=== PATIENT | female | born 1945 | race Native Hawaiian/Other Pacific Islander ===

== ENCOUNTER 2016-12-08 11:05 | Inpatient (IN) | payer MEDICARE, OTHER ==
[2016-12-08 11:11] VITALS: BMI 25.7
[2016-12-08] MEDS ORDERED: Sodium Chloride 0.9% 1,000 ML IV STA (11:34)
--- NOTE | 2016-12-08 11:35 | ED PDOC ---
Arrival/HPI <Efra Franco - Last Filed: 12/08/16 15:25> - General Historian: Patient <Mariela Hall - Last Filed: 12/08/16 15:31> - General Chief Complaint: Abdominal Pain Time Seen by Provider: 12/08/16 11:15 - History of Present Illness Narrative History of Present Illness (Text): 12/08/16 11:35 This patient is a 71yo F w/ a PMhx of hypothyroidism, HTN who is coming to the hospital after a 2d history of lower abdominal pain. states the pain started in her umbilicus and has radiated now down to the lower abdomen. Patient states she has not passed any gas or had any bowel movement since the pain started, or been able to tolerate any PO for 2 days. States she only took her hypothyroid medicine today, skipped her BP meds. PSHx of total hysterectomy in [facility] with open abdominal surgery. Never had obstruction or symptoms like this before. Patient admits to fever/chills, sweats, vomiting all meals. Denies CP, SOB, diarrhea, dysuria/freq/urg, or lower extremity pain swelling. PMD: Dr. Marleni Patel [phone] [address] [place], [address] 12/08/16 11:47 (Efra Franco) Past Medical History - Provider Review Nursing Documentation Reviewed: Yes - Travel History Have you recently traveled outside [place] w/in the past 3 mons?: No - Infectious Disease Hx of Infectious Diseases: None - Reproductive Menopause: Yes - Cardiac Hx Cardiac Disorders: No Hx Hypertension: Yes - Pulmonary Hx Respiratory Disorders: No - Endocrine/Metabolic Hx Hyperthyroidism: Yes - Psychiatric Hx Substance Use: No - Surgical History Hx Hysterectomy: Yes (20 years ago) - Anesthesia Hx Anesthesia Reactions: No Hx Malignant Hyperthermia: No <Efra Franco - Last Filed: 12/08/16 15:25> - Provider Review Nursing Documentation Reviewed: Yes <Mariela Hall - Last Filed: 12/08/16 15:31> - Patient History Narrative Patient History: hypothyroidism, HTN, total abdominal hysterectomy in [place], lower leg vein stripping w/ laser (Efra Franco) Family/Social History - Physician Review Nursing Documentation Reviewed: Yes Family/Social History: Hypertension Smoking Status: Never Smoked Hx Alcohol Use: No Hx Substance Use: No <AllyjeromyEfra skaggs - Last Filed: 12/08/16 15:25> - Physician Review Nursing Documentation Reviewed: Yes <Mariela Hall - Last Filed: 12/08/16 15:31> Allergies/Home Meds <Efra Franco - Last Filed: 12/08/16 15:25> <Mariela Hall - Last Filed: 12/08/16 15:31> Allergies/Adverse Reactions: Allergies No Known Allergies Allergy (Unverified 12/08/16 11:11) Home Medications: Home Meds Medication Instructions Recorded Confirmed Levothyroxine [Synthroid] 100 mcg PO DAILY 12/08/16 12/08/16 Olmesartan/Hydrochlorothiazide 1 tab PO DAILY 12/08/16 12/08/16 [Olmesartan-Hctz 40-12.5 mg Tab] Review of Systems - Review of Systems Constitutional: Fevers. absent: Fatigue, Weight Change Eyes: absent: Vision Changes, Photophobia ENT: absent: Hearing Changes, Tinnitus Respiratory: absent: SOB, Cough, Sputum, Wheezing Cardiovascular: absent: Chest Pain, Palpitations, Edema, Calf Pain, Orthopnea Gastrointestinal: Abdominal Pain, Stool Changes (has not had a BM in 2 days), Nausea, Vomiting, Appetite Changes. absent: Constipation, Diarrhea, Hematochezia, Hematemesis, Anorexia, Food Intolerance Genitourinary Female: absent: Dysuria, Frequency, Hematuria, Urine Output Changes Musculoskeletal: absent: Arthralgias Skin: absent: Rash, Pruritis Neurological: absent: Headache, Dizziness Endocrine: absent: Diaphoresis Hemo/Lymphatic: absent: Adenopathy Psychiatric: absent: Anxiety, Depression <AllyjeromyEfra skaggs - Last Filed: 12/08/16 15:25> Physical Exam Temperature: Febrile (101 rectal) Blood Pressure: Normal Pulse: Tachycardic Respiratory Rate: Normal Appearance: Positive for: Well-Appearing, Non-Toxic Mental Status: Positive for: Alert and Oriented X 3 - Systems Exam Head: Present: Atraumatic Pupils: Present: PERRL Extroacular Muscles: Present: EOMI Conjunctiva: Present: Normal Mouth: Present: Moist Mucous Membranes Neck: Present: Normal Range of Motion. No: Meningeal Signs, MIDLINE TENDERNESS Respiratory/Chest: Present: Clear to Auscultation, Good Air Exchange. No: Respiratory Distress Cardiovascular: Present: Murmurs, Normal S1, S2, Tachycardic Abdomen: Present: Tenderness (lower abdominal diffuse tenderness ), Distention ( tympanic ), Normal Bowel Sounds, Guarding (lower abdominal gaurding ). No: Peritoneal Signs, Rebound Back: No: CVA Tenderness Lower Extremity: No: CALF TENDERNESS Neurological: Present: GCS=15, CN II-XII Intact, Speech Normal, Gait Normal Skin: Present: Warm Psychiatric: Present: Alert, Oriented x 3 <Efra Franco - Last Filed: 12/08/16 15:25> Medical Decision Making - Lab Interpretations I have reviewed the lab results: Yes <Efra Franco - Last Filed: 12/08/16 15:25> - Lab Interpretations I have reviewed the lab results: Yes - RAD Interpretation Station Helper: ED Physician <Mariela Hall - Last Filed: 12/08/16 15:31> ED Course and Treatment: 12/08/16 11:42 Patient is SIRS 1/4, tachycardic, borderline resp rate); 1L NS bolus, blood cultures, shock panel. Blood pressure is stable f/u labs CT Abdomen Pelvis PO and IV Contrast Pain Control Will continue to follow 12/08/16 12:18 Chest X-Ray is clear; no pneumothorax or obvious sign of PNA Patient is still pending CT Abdomen Pelvis w/ PO/IV Contrast Comfortably sitting in bed; no wretching/vomiting noted 12/08/16 12:18 12/08/16 12:27 CBC shows no elevated WBC however left shift; pending CMP and cardiac ISO 12/08/16 12:56 CMP WNL except for mildly elevated bilirubin 1.6; Troponin WNL; Lactate WNL; will f/u w/ abdominal CT scan 12/08/16 13:04 Repleted K 40mEq IV 12/08/16 15:25 CT scan showed distal small bowel obstruction with transition point; contrast not passing through surgery consult placed surgery residents here evaluating patients currently patient will be admitted to the hospital for the treatment of SBO patient is hemodynamically stable case discussed in detail with Dr. Hall (Efra Franco) 12/08/16 Patient Seen With Resident: In agreement with resident note which contains more details about the patient. Patient was seen and evaluated with resident. Came up with plan and treatment together. 12/08/16 15:30 Results of workup showing SBO - will need tba - discussed with surgical team. Discussed with Dr. Morrell for admission on her service. (Mariela Hall) - Lab Interpretations Lab Results: 12/08/16 11:30 12/08/16 11:30 Lab Results 12/08/16 13:40: Urine Color Yellow, Urine Appearance Sl cloudy, Urine pH 6.0, Ur Specific Sargent 1.020, Urine Protein 30 H, Urine Glucose (UA) Negative, Urine Ketones Negative, Urine Blood Large H, Urine Nitrate Negative, Urine Bilirubin Negative, Urine Urobilinogen 0.2, Ur Leukocyte Esterase Trace H, Urine RBC Tntc, Urine WBC 0 - 2, Ur Epithelial Cells 3 - 4, Urine Bacteria Few 12/08/16 11:30: TSH 3rd Generation 4.13 12/08/16 11:30: Sodium 138, Chloride 100, Potassium 3.2 L, Carbon Dioxide 24, Anion Gap 17, BUN 33 H, Creatinine 1.0, Est GFR ( Amer) > 60, Est GFR ( Non-Af Amer) 55, Random Glucose 122 H, Calcium 9.7, Total Bilirubin 1.6 H, AST 21, ALT 17, Alkaline Phosphatase 113, Lactate Dehydrogenase 462, Total Creatine Kinase 57, Troponin I < 0.01, Total Protein 8.1, Albumin 4.0, Globulin 4.1, Albumin/Globulin Ratio 1.0 L, Lipase < 10 L 12/08/16 11:30: pO2 141 H, VBG pH 7.50 H, VBG pCO2 33.0 L, VBG HCO3 25.7, VBG Total CO2 26.7, VBG O2 Sat (Calc) 98.6 H, VBG Base Excess 2.9 H, VBG Potassium 3.3 L, Sodium 137.0, Chloride 104.0, Glucose 125 H, Lactate 1.4, FiO2 21.0, Venous Blood Potassium 3.3 L 12/08/16 11:30: WBC 8.7, RBC 4.07, Hgb 12.4, Hct 35.9 L, MCV 88.2, MCH 30.5, MCHC 34.5, RDW 13.4, Plt Count 185, MPV 10.4, Gran % 86.6 H, Lymph % (Auto) 9.9 L, Swain % (Auto) 3.3, Eos % (Auto) 0.1 L, Baso % (Auto) 0.1, Gran # 7.54 H, Lymph # 0.9 L, Swain # 0.3, Eos # 0.0, Baso # 0.01 - RAD Interpretation Radiology Orders: 12/08/16 11:33 CHEST PORTABLE [RAD] Stat 12/08/16 11:38 ABDOMEN & PELVIS [ABD PELVIS PO & IV CONTRAST] [CT] Stat - Medication Orders Current Medication Orders: Potassium Chloride (Potassium Chloride 20 Meq/100 Ml) 20 meq in 100 mls @ 50 mls/hr IVPB Q2H NELL Stop: 12/08/16 16:44 Last Admin: 12/08/16 13:57 Dose: 50 mls/hr Discontinued Medications Famotidine (Pepcid) 20 mg IVP STAT STA Stop: 12/08/16 11:35 Last Admin: 12/08/16 11:57 Dose: 20 mg Sodium Chloride (Sodium Chloride 0.9%) 1,000 mls @ 999 mls/hr IV .Q1H1M STA Stop: 12/08/16 12:34 Last Admin: 12/08/16 11:58 Dose: 999 mls/hr Iohexol (Omnipaque 240 (50 Ml)) Confirm Administered Dose 50 ml .ROUTE .STK-MED ONE Stop: 12/08/16 11:41 Iohexol (Omnipaque 350 100 Ml) Confirm Administered Dose 350 mg .ROUTE .STK-MED ONE Stop: 12/08/16 13:19 Morphine Sulfate (Morphine) 2 mg IVP STAT STA Stop: 12/08/16 11:41 Last Admin: 12/08/16 11:57 Dose: 2 mg Ondansetron HCl (Zofran Inj) 4 mg IVP STAT STA Stop: 12/08/16 11:35 Last Admin: 12/08/16 11:57 Dose: 4 mg <Efra Franco - Last Filed: 12/08/16 15:25> - PA / [employer]ERRICK[employer] R[employer]GER / Resident Statement / has reviewed & agrees with the documentation as recorded. / has examined the patient and agrees with the treatment plan. - Scribe Statement The provider has reviewed the documentation as recorded by the Scribe <Mariela Hall - Last Filed: 12/08/16 15:31> - Scribe Statement 12/08/2016 Rebeca Houston Provider Scribe Attestation: All medical record entries made by the Scribe were at my direction and personally dictated by me. I have reviewed the chart and agree that the record accurately reflects my personal performance of the history, physical exam, medical decision making, and the department course for this patient. I have also personally directed, reviewed, and agree with the discharge instructions and disposition. (Mariela Hall) Disposition/Present on Arrival - Present on Arrival Any Indicators Present on Arrival: Yes History of DVT/PE: No History of Uncontrolled Diabetes: No Urinary Catheter: No History of Decub. Ulcer: No History Surgical Site Infection Following: None - Disposition Have Diagnosis and Disposition been Completed?: Yes Disposition Time: 15:26 Patient Plan: Admission <Efra Franco - Last Filed: 12/08/16 15:25> <Mariela Hall - Last Filed: 12/08/16 15:31> - Disposition Diagnosis: Small bowel obstruction due to adhesions Disposition: HOSPITALIZED Patient Problems: Current Active Problems Problem Status Onset Small bowel obstruction due to adhesions Acute Condition: FAIR Referrals: PCP,NO [Primary Care Provider] - Follow up with primary
[2016-12-08] MEDS ORDERED: Iohexol 240 (50 ml) ONE (11:40)
[2016-12-08] MEDS ORDERED: Morphine 2 mg/ml ISec IVP STA (11:40)
[2016-12-08 12:06] LABS: VENOUS BLOOD GAS BASE EXCESS 2.9 mmol/L (0.0-2.0); VENOUS BLOOD GAS PO2 141 mm/Hg (30-55)
[2016-12-08 12:13] LABS: BASO # 0.01 K/mm3 (0.0-2.0); BASO % 0.1 % (0.0-3.0); EOS % 0.1 % (1.5-5.0); GRAN # 7.54 (1.4-6.5); GRAN % 86.6 % (50.0-68.0); HEMOGLOBIN 12.4 gm/dL (12.0-16.0); LYMPH # 0.9 (1.2-3.4); LYMPH % 9.9 % (22.0-35.0); MEAN CELL VOLUME 88.2 fL (80.0-105.0); MEAN CORPUSCULAR HEMOGLOBIN 30.5 pg (25.0-35.0); MEAN CORPUSCULAR HGB CONC 34.5 g/dl (31.0-37.0); MEAN PLATELET VOLUME 10.4 fl (7.0-11.0); MONO # 0.3 (0.1-0.6); MONO % 3.3 % (1.0-6.0); PLATELET COUNT 185 10^3/uL (120.0-450.0); RBC 4.07 10^6/uL (3.5-6.1); RED CELL DISTRIBUTION WIDTH 13.4 % (11.5-14.5); WHITE BLOOD COUNT 8.7 10^3/ul (4.5-11.0)
[2016-12-08 12:18] LABS: ALT/SGPT 17 U/L (7-56); AST/SGOT 21 U/L (15-39); BLOOD UREA NITROGEN 33 mg/dL (7-21); CALCIUM 9.7 mg/dL (8.4-10.5); GFR AFRICAN-AMERICAN > 60; GFR NON-AFRICAN AMERICAN 55
[2016-12-08 12:29] LABS: LIPASE < 10 U/L (23-300); TROPONIN I < 0.01 ng/mL
[2016-12-08] MEDS ORDERED: Iohexol 350 MG/100 ML VIAL ONE (13:18)
[2016-12-08 13:48] LABS: URINE BILIRUBIN NEGATIVE (NEGATIVE); URINE BLOOD LARGE (NEGATIVE); URINE GLUCOSE (UA) NEGATIVE (NEGATIVE); URINE LEUKOCYTE ESTERASE TRACE Leu/uL (NEGATIVE); URINE NITRATE NEGATIVE (NEGATIVE); URINE PROTEIN 30 mg/dL (<30 mg/dL); URINE UROBILINOGEN 0.2 E.U./dL (<1 E.U./dL)
[2016-12-08 13:50] LABS: URINE APPEARANCE SL CLOUDY (CLEAR); URINE COLOR YELLOW (YELLOW)
[2016-12-08 13:53] LABS: URINE RBC TNTC /hpf (0-2); URINE WBC 0 - 2 /hpf (0-6)
[2016-12-08 13:54] LABS: URINE BACTERIA FEW (NEG)
--- NOTE | 2016-12-08 15:51 | CP.PCM.CON ---
<Henry Keenan - Last Filed: 12/09/16 08:27> History of Present Illness - History of Present Illness History of Present Illness: General Surgery Dr. Sargent 71 year old F presented to the ER after a 3 day hx of abdominal pain. She states that the pain is primarily in the lower portion of her abdomen, poorly localized, dull in nature and does not radiate anywhere. Patient complains of abdomen distention. She has been nauseous the past few days and vomited this morning. The vomit was liquidly and patient denies seeing any blood in it. She has not had a BM since Wednesday night. Denies fever/chills, numbness/tingling, SOB, CP PMHx: HTN, Hyperthyroid PSHx: Hysterectomy 20 years ago in [facility] Social: Non smoker, non drinker, denies drug use Allergies: NKDA Review of Systems - Review of Systems All systems: reviewed and no additional remarkable complaints except Past Patient History - Infectious Disease Hx of Infectious Diseases: None - Past Social History Smoking Status: Never Smoked - CARDIAC Hx Cardiac Disorders: No Hx Hypertension: Yes - PULMONARY Hx Respiratory Disorders: No - ENDOCRINE/METABOLIC Hx Hyperthyroidism: Yes - PSYCHIATRIC Hx Substance Use: No - SURGICAL HISTORY Hx Hysterectomy: Yes (20 years ago) - ANESTHESIA Hx Anesthesia Reactions: No Hx Malignant Hyperthermia: No Meds Allergies/Adverse Reactions: Allergies Allergy/AdvReac Type Severity Reaction Status Date / Time No Known Allergies Allergy Verified 12/08/16 18:13 - Medications Medications: Current Medications Potassium Chloride (Potassium Chloride 20 Meq/100 Ml) 20 meq in 100 mls @ 50 mls/hr IVPB Q2H NELL Stop: 12/08/16 16:44 Last Admin: 12/08/16 13:57 Dose: 50 mls/hr Physical Exam - Head Exam Head Exam: ATRAUMATIC, NORMOCEPHALIC - Eye Exam Eye Exam: EOMI - Respiratory Exam Respiratory Exam: NORMAL BREATHING PATTERN. absent: Accessory Muscle Use, Respiratory Distress - Cardiovascular Exam Cardiovascular Exam: REGULAR RHYTHM - GI/Abdominal Exam GI & Abdominal Exam: Distended, Soft, Tenderness. absent: Firm - Neurological Exam Neurological exam: Alert, Oriented x3 - Psychiatric Exam Psychiatric exam: Normal Affect, Normal Mood - Skin Skin Exam: Dry, Normal Color, Warm Results - Vital Signs Recent Vital Signs: Last Vital Signs Temp 100.1 F H 07/18/17 11:32 Pulse 69 12/08/16 14:07 Resp 18 12/08/16 14:07 BP 150/79 12/08/16 14:07 Pulse Ox 100 12/08/16 14:07 - Labs Result Diagrams: 12/09/16 05:00 12/09/16 05:00 Labs: Laboratory Results - last 24 hr 12/08/16 12/08/16 12/08/16 11:30 11:30 11:30 WBC 8.7 RBC 4.07 Hgb 12.4 Hct 35.9 L MCV 88.2 MCH 30.5 MCHC 34.5 RDW 13.4 Plt Count 185 MPV 10.4 Gran % 86.6 H Lymph % (Auto) 9.9 L Mcculloch % (Auto) 3.3 Eos % (Auto) 0.1 L Baso % (Auto) 0.1 Gran # 7.54 H Lymph # 0.9 L Mcculloch # 0.3 Eos # 0.0 Baso # 0.01 pO2 141 H VBG pH 7.50 H VBG pCO2 33.0 L VBG HCO3 25.7 VBG Total CO2 26.7 VBG O2 Sat (Calc) 98.6 H VBG Base Excess 2.9 H VBG Potassium 3.3 L Sodium 137.0 138 Chloride 104.0 100 Glucose 125 H Lactate 1.4 FiO2 21.0 Potassium 3.2 L Carbon Dioxide 24 Anion Gap 17 BUN 33 H Creatinine 1.0 Est GFR ( Amer) > 60 Est GFR (Non-Af Amer) 55 Random Glucose 122 H Calcium 9.7 Total Bilirubin 1.6 H AST 21 ALT 17 Alkaline Phosphatase 113 Lactate Dehydrogenase 462 Total Creatine Kinase 57 Troponin I < 0.01 Total Protein 8.1 Albumin 4.0 Globulin 4.1 Albumin/Globulin Ratio 1.0 L Lipase < 10 L TSH 3rd Generation Venous Blood Potassium 3.3 L Urine Color Urine Appearance Urine pH Ur Specific [place] Urine Protein Urine Glucose (UA) Urine Ketones Urine Blood Urine Nitrate Urine Bilirubin Urine Urobilinogen Ur Leukocyte Esterase Urine RBC Urine WBC Ur Epithelial Cells Urine Bacteria 12/08/16 12/08/16 11:30 13:40 WBC RBC Hgb Hct MCV MCH MCHC RDW Plt Count MPV Gran % Lymph % (Auto) Mcculloch % (Auto) Eos % (Auto) Baso % (Auto) Gran # Lymph # Mcculloch # Eos # Baso # pO2 VBG pH VBG pCO2 VBG HCO3 VBG Total CO2 VBG O2 Sat (Calc) VBG Base Excess VBG Potassium Sodium Chloride Glucose Lactate FiO2 Potassium Carbon Dioxide Anion Gap BUN Creatinine Est GFR ( Amer) Est GFR (Non-Af Amer) Random Glucose Calcium Total Bilirubin AST ALT Alkaline Phosphatase Lactate Dehydrogenase Total Creatine Kinase Troponin I Total Protein Albumin Globulin Albumin/Globulin Ratio Lipase TSH 3rd Generation 4.13 Venous Blood Potassium Urine Color Yellow Urine Appearance Sl cloudy Urine pH 6.0 Ur Specific [place] 1.020 Urine Protein 30 H Urine Glucose (UA) Negative Urine Ketones Negative Urine Blood Large H Urine Nitrate Negative Urine Bilirubin Negative Urine Urobilinogen 0.2 Ur Leukocyte Esterase Trace H Urine RBC Tntc Urine WBC 0 - 2 Ur Epithelial Cells 3 - 4 Urine Bacteria Few Assessment & Plan - Assessment and Plan (Free Text) Assessment: 71 year old F with SBO Plan: CT on 12/08 shows transition point in the distal portion of the small bowel. NG Tube placement NPO Pain management Will discuss with Dr. Sargent - Date & Time Date: 12/08/16 Time: 15:57 <Jerry Sargent - Last Filed: 12/13/16 18:07> Meds - Medications Medications: Current Medications Acetaminophen (Tylenol 650 Mg Supp) 650 mg RC Q6H PRN PRN Reason: Fever >100.4 F Enoxaparin Sodium (Lovenox) 40 mg SC DAILY [facility] PRN Reason: Protocol Last Admin: 12/13/16 09:14 Dose: 40 mg Home Med (Home Med) 1 unit PO DAILY [facility] Hydromorphone HCl (Dilaudid) 0.5 mg IVP Q3 PRN PRN Reason: Pain, moderate (4-7) Last Admin: 12/13/16 09:12 Dose: 0.5 mg Metronidazole (Flagyl) 500 mg in 100 mls @ 100 mls/hr IVPB Q8 NELL PRN Reason: Protocol Last Admin: 12/13/16 13:59 Dose: 100 mls/hr Ceftriaxone Sodium (Rocephin 1 Gram Ivpb) 1 gm in 100 mls @ 100 mls/hr IVPB DAILY [facility] PRN Reason: Protocol Last Admin: 12/13/16 09:14 Dose: 100 mls/hr Dextrose/Sodium Chloride (Dextrose 5%/0.45% Ns 1000 Ml) 1,000 mls @ 100 mls/hr IV .Q10H NELL Last Admin: 12/13/16 11:28 Dose: 100 mls/hr Potassium Chloride 40 meq/ (Dextrose/Sodium Chloride) 1,020 mls @ 100 mls/hr IV .[id number] NELL Stop: 12/14/16 08:08 Last Admin: 12/13/16 11:45 Dose: 100 mls/hr Results - Vital Signs Recent Vital Signs: Last Vital Signs Temp 98 F 12/13/16 16:00 Pulse 77 12/13/16 16:00 Resp 18 12/13/16 16:00 BP 158/84 H 12/13/16 16:00 Pulse Ox 100 12/13/16 16:00 - Labs Result Diagrams: 12/13/16 06:00 12/13/16 06:00 Labs: Laboratory Results - last 24 hr 12/13/16 12/13/16 06:00 06:00 WBC 6.6 RBC 3.34 L Hgb 9.6 L Hct 29.6 L MCV 88.6 MCH 28.7 MCHC 32.4 RDW 13.3 Plt Count 240 MPV 9.2 Gran % 64.6 Lymph % (Auto) 18.3 L Mcculloch % (Auto) 13.0 H Eos % (Auto) 3.8 Baso % (Auto) 0.3 Gran # 4.29 Lymph # 1.2 Mcculloch # 0.9 H Eos # 0.3 Baso # 0.02 Sodium 133 Potassium 3.3 L Chloride 99 Carbon Dioxide 29 Anion Gap 8 L BUN 9 Creatinine 0.5 Est GFR ( Amer) > 60 Est GFR (Non-Af Amer) > 60 Random Glucose 117 H Calcium 7.9 L Total Bilirubin 0.4 AST 14 L ALT 23 Alkaline Phosphatase 53 Total Protein 5.5 L Albumin 2.5 L Globulin 3.0 Albumin/Globulin Ratio 0.8 L Assessment & Plan - Assessment and Plan (Free Text) Plan: Patient was seen and examined by me. I agree with assessment and plan as per resident's note.
[2016-12-08] MEDS ORDERED: OLMESARTAN HCTZ PO SCH (18:10)
[2016-12-08] MEDS ORDERED: Morphine 2 mg/ml ISec IVP PRN (18:51)
[2016-12-08] MEDS ORDERED: Pneumococcal 23-Valent Vaccine IM ONE (19:27)
[2016-12-08] MEDS ORDERED: BENICAR HCT PO ONE (20:30)
[2016-12-09] MEDS: Dextrose 5%/0.45% NS 1,000 ML IV SCH ×2 (00:44→21:43)
[2016-12-09] MEDS ORDERED: Ciprofloxacin 400mg/200ml D5W 400 MG/200 ML BAG IVPB SCH (01:00)
[2016-12-09 06:47] LABS: BASO # 0.01 K/mm3 (0.0-2.0); BASO % 0.1 % (0.0-3.0); EOS # 0.1 (0.0-0.7); EOS % 1.6 % (1.5-5.0); GRAN % 79.8 % (50.0-68.0); HEMOGLOBIN 11.3 gm/dL (12.0-16.0); LYMPH # 0.8 (1.2-3.4); LYMPH % 11.7 % (22.0-35.0); MEAN CELL VOLUME 89.8 fL (80.0-105.0); MEAN CORPUSCULAR HEMOGLOBIN 29.5 pg (25.0-35.0); MEAN CORPUSCULAR HGB CONC 32.8 g/dl (31.0-37.0); MEAN PLATELET VOLUME 10.3 fl (7.0-11.0); MONO # 0.5 (0.1-0.6); MONO % 6.8 % (1.0-6.0); PLATELET COUNT 185 10^3/uL (120.0-450.0); RBC 3.83 10^6/uL (3.5-6.1); RED CELL DISTRIBUTION WIDTH 13.5 % (11.5-14.5); WHITE BLOOD COUNT 6.9 10^3/ul (4.5-11.0)
[2016-12-09 06:54] LABS: ALB/GLOB RATIO 0.9 (1.1-1.8); ALBUMIN 3.4 g/dL (3.0-4.8); ALT/SGPT 23 U/L (7-56); AST/SGOT 18 U/L (15-39); BLOOD UREA NITROGEN 18 mg/dL (7-21); CALCIUM 8.8 mg/dL (8.4-10.5); GFR AFRICAN-AMERICAN > 60; GFR NON-AFRICAN AMERICAN > 60
--- NOTE | 2016-12-09 08:34 | CP.PCM.PN ---
<Henry Keenan - Last Filed: 12/09/16 08:28> Subjective - Date & Time of Evaluation Date of Evaluation: 12/09/16 Time of Evaluation: 08:28 - Subjective Subjective: General Surgery Dr. Sargent Patient seen and examined this morning at bed side. No acute events over night. Patient states that she is still experiencing diffuse abdominal pain and nausea with NG tube in place. She has not had a BM or passed any flatus. Denies fever/ chills, SOB or CP. Objective - Vital Signs/Intake and Output Vital Signs (last 24 hours): Temp Pulse Resp BP Pulse Ox 98.4 F 79 20 151/80 H 99 12/08/16 19:01 12/08/16 19:01 12/08/16 19:01 12/08/16 19:01 12/08/16 16:00 Intake and Output: 12/09/16 12/09/16 06:59 18:59 Intake Total 0 Balance 0 - Medications Medications: Current Medications Clonidine HCl (Catapres Tts1 0.1 Mg/24 Hr) 1 patch TD Q7D@1000 [facility] Home Med (Home Med) 1 unit PO DAILY [facility] Dextrose/Sodium Chloride (Dextrose 5%/0.45% Ns 1000 Ml) 1,000 mls @ 60 mls/hr IV .[id number] [facility] Last Admin: 12/09/16 00:44 Dose: Not Given Morphine Sulfate (Morphine) 2 mg IVP Q4H PRN PRN Reason: Pain, moderate (4-7) - Labs Labs: 12/09/16 05:00 12/09/16 05:00 - Constitutional Appears: No Acute Distress - Head Exam Head Exam: ATRAUMATIC, NORMOCEPHALIC - Eye Exam Eye Exam: EOMI - ENT Exam ENT Exam: Mucous Membranes Moist - Respiratory Exam Respiratory Exam: NORMAL BREATHING PATTERN. absent: Accessory Muscle Use, Respiratory Distress - Cardiovascular Exam Cardiovascular Exam: REGULAR RHYTHM - GI/Abdominal Exam GI & Abdominal Exam: Distended, Guarding, Soft, Tenderness. absent: Rigid Additional comments: NG tube - 640cc since insertion - Neurological Exam Neurological Exam: Alert, Awake, Oriented x3 - Psychiatric Exam Psychiatric exam: Normal Affect, Normal Mood - Skin Skin Exam: Dry, Normal Color, Warm Assessment and Plan - Assessment and Plan (Free Text) Assessment: 71 year old F with SBO. Plan: Keep NG Tube in place, intermittent, low suction NPO Pain management Will discuss with attending Henry Keenan PGY1 <Jerry Sargent - Last Filed: 12/13/16 18:09> Objective - Vital Signs/Intake and Output Vital Signs (last 24 hours): Temp Pulse Resp BP Pulse Ox 98 F 77 18 158/84 H 100 12/13/16 16:00 12/13/16 16:00 12/13/16 16:00 12/13/16 16:00 12/13/16 16:00 Intake and Output: 12/13/16 12/13/16 06:59 18:59 Intake Total 1600 Output Total 715 1814 Balance 885 -1814 - Medications Medications: Current Medications Acetaminophen (Tylenol 650 Mg Supp) 650 mg RC Q6H PRN PRN Reason: Fever >100.4 F Enoxaparin Sodium (Lovenox) 40 mg SC DAILY [facility] PRN Reason: Protocol Last Admin: 12/13/16 09:14 Dose: 40 mg Home Med (Home Med) 1 unit PO DAILY [facility] Hydromorphone HCl (Dilaudid) 0.5 mg IVP Q3 PRN PRN Reason: Pain, moderate (4-7) Last Admin: 12/13/16 09:12 Dose: 0.5 mg Metronidazole (Flagyl) 500 mg in 100 mls @ 100 mls/hr IVPB Q8 NELL PRN Reason: Protocol Last Admin: 12/13/16 13:59 Dose: 100 mls/hr Ceftriaxone Sodium (Rocephin 1 Gram Ivpb) 1 gm in 100 mls @ 100 mls/hr IVPB DAILY [facility] PRN Reason: Protocol Last Admin: 12/13/16 09:14 Dose: 100 mls/hr Dextrose/Sodium Chloride (Dextrose 5%/0.45% Ns 1000 Ml) 1,000 mls @ 100 mls/hr IV .Q10H NELL Last Admin: 12/13/16 11:28 Dose: 100 mls/hr Potassium Chloride 40 meq/ (Dextrose/Sodium Chloride) 1,020 mls @ 100 mls/hr IV .[id number] NELL Stop: 12/14/16 08:08 Last Admin: 12/13/16 11:45 Dose: 100 mls/hr - Labs Labs: 12/13/16 06:00 12/13/16 06:00 PT 10.7 Seconds (9.9-11.8) 12/11/16 06:00 INR 0.99 (0.93-1.08) 12/11/16 06:00 APTT 33.0 Seconds (23.7-30.8) H 12/11/16 06:00 Assessment and Plan - Assessment and Plan (Free Text) Plan: Patient was seen and examined by me. I agree with assessment and plan as per resident's note.
--- NOTE | 2016-12-09 09:34 | RAD ---
PROCEDURE: Abdomen single view HISTORY: Eval Contrast Progression in SBO COMPARISON: TECHNIQUE: Single view FINDINGS: Moderately dilated loops of small bowel are seen. Oral contrast is seen in the stomach and small bowel IMPRESSION: Moderately dilated loops of small bowel
--- NOTE | 2016-12-09 09:43 | RAD ---
HISTORY: Abdominal Pain COMPARISON: 12/08/2016 FINDINGS: BOWEL: There is persistent dilatation of small bowel consistent with partial obstruction. Contrast has reached the colon BONES: Normal. OTHER FINDINGS: None. IMPRESSION: Persistent dilatation of small bowel consistent with partial small bowel obstruction
[2016-12-09] MEDS ORDERED: BENICAR HCT PO SCH (10:00)
--- NOTE | 2016-12-09 14:00 | RAD ---
HISTORY: SBO COMPARISON: No prior. FINDINGS: BOWEL: There is slight improvement in the pattern of small bowel obstruction. The nasogastric tube is seen in the stomach in satisfactory position BONES: Normal. OTHER FINDINGS: None. IMPRESSION: There is slight improvement in the pattern of small bowel obstruction. The nasogastric tube is seen in the stomach in satisfactory position
--- NOTE | 2016-12-09 20:45 | CP.PCM.HP ---
History of Present Illness - History of Present Illness History of Present Illness: A 71 yr old female with hx of HTN , hf fibroid sx 20 yrs ago came with c\o nausea and vomiting for 3 days with abdominal pain all over ,progressively getting worsening ,came to er, no BM from last wednesday CT abdomen showed SBO.ON NG tube, repeat xrays- minimal improvement pain is better, nausea is better. denies similar complaints never had colonoscopy. did not pass gas after admission Present on Admission - Present on Admission Any Indicators Present on Admission: No Review of Systems - Constitutional Constitutional: absent: Chills, Fatigue, Fever, Headache, Night Sweats - EENT Nose/Mouth/Throat: absent: Nasal Congestion, Dysphagia, Odynophagia, Sore Throat , Neck Pain - Cardiovascular Cardiovascular: absent: Chest Pain, Chest Pain with Activity, Diaphoresis, Leg Edema, Palpitations, Rapid Heart Rate - Respiratory Respiratory: absent: Cough, Dyspnea on Exertion, Excessive Mucous Production - Gastrointestinal Gastrointestinal: Abdominal Pain, Constipation, Nausea. absent: Coffee Ground Emesis, Dyspepsia - Genitourinary Genitourinary: absent: Freq UTI - Musculoskeletal Musculoskeletal: Arthralgias - Neurological Neurological: absent: Abnormal Gait, Dizziness - Psychiatric Psychiatric: absent: Depression, Mood Swings - Hematologic/Lymphatic Hematologic: absent: Lymphadenopathy Past Patient History - Infectious Disease Hx of Infectious Diseases: None - Past Social History Smoking Status: Never Smoked - CARDIAC Hx Cardiac Disorders: No Hx Hypertension: Yes - PULMONARY Hx Respiratory Disorders: No - NEUROLOGICAL Hx Neurological Disorder: No - HEENT Hx HEENT Problems: No - RENAL Hx Chronic Kidney Disease: No - ENDOCRINE/METABOLIC Hx Hyperthyroidism: Yes - HEMATOLOGICAL/ONCOLOGICAL Hx Blood Disorders: No - INTEGUMENTARY Hx Dermatological Problems: Yes Other/Comment: POST LASER SURGERY TO BILATERAL LE AND FOOT.BILATERAL LOWER EXTREMITY IS BLACKENED.SAME WITH FOOT. - MUSCULOSKELETAL/RHEUMATOLOGICAL Hx Musculoskeletal Disorders: No Hx Falls: No - GASTROINTESTINAL Hx Gastrointestinal Disorders: Yes Other/Comment: SBO SECONDARY TO ADHESIONS 12-08-16 - GENITOURINARY/GYNECOLOGICAL Hx Genitourinary Disorders: No - PSYCHIATRIC Hx Substance Use: No - SURGICAL HISTORY Hx Hysterectomy: Yes (20 years ago) - ANESTHESIA Hx Anesthesia Reactions: No Hx Malignant Hyperthermia: No Meds Allergies/Adverse Reactions: Allergies Allergy/AdvReac Type Severity Reaction Status Date / Time No Known Allergies Allergy Verified 12/08/16 18:13 Physical Exam - Constitutional Appears: In Acute Distress - Head Exam Head Exam: ATRAUMATIC, NORMAL INSPECTION - Eye Exam Eye Exam: EOMI, Normal appearance, PERRL - ENT Exam ENT Exam: Mucous Membranes Dry - Neck Exam Neck exam: Positive for: Normal Inspection. Negative for: Lymphadenopathy - Respiratory Exam Respiratory Exam: Clear to Auscultation Bilateral, NORMAL BREATHING PATTERN. absent: Wheezes - Cardiovascular Exam Cardiovascular Exam: REGULAR RHYTHM, +S1, +S2. absent: Systolic Murmur - GI/Abdominal Exam GI & Abdominal Exam: Hypoactive Bowel Sounds, Soft. absent: Tenderness - Extremities Exam Extremities exam: Positive for: normal inspection, pedal pulses present. Negative for: pedal edema - Back Exam Back exam: absent: paraspinal tenderness - Neurological Exam Neurological exam: Alert, CN II-XII Intact, Oriented x3 - Psychiatric Exam Psychiatric exam: Normal Affect, Normal Mood - Skin Skin Exam: Intact Results - Vital Signs Recent Vital Signs: Last Vital Signs Temp 98.6 F 12/09/16 16:00 Pulse 76 12/09/16 18:33 Resp 20 12/09/16 16:00 BP 160/91 H 12/09/16 18:33 Pulse Ox 96 12/09/16 16:00 - Labs Result Diagrams: 12/09/16 05:00 12/09/16 05:00 Labs: Laboratory Results - last 24 hr 12/08/16 12/09/16 12/09/16 18:40 05:00 05:00 WBC 6.9 D RBC 3.83 Hgb 11.3 L Hct 34.4 L MCV 89.8 MCH 29.5 MCHC 32.8 RDW 13.5 Plt Count 185 MPV 10.3 Gran % 79.8 H Lymph % (Auto) 11.7 L Edmonson % (Auto) 6.8 H Eos % (Auto) 1.6 Baso % (Auto) 0.1 Gran # 5.50 Lymph # 0.8 L Edmonson # 0.5 Eos # 0.1 Baso # 0.01 Sodium 138 Potassium 4.0 Chloride 102 Carbon Dioxide 27 Anion Gap 13 BUN 18 Creatinine 0.7 Est GFR ( Amer) > 60 Est GFR (Non-Af Amer) > 60 Random Glucose 98 Calcium 8.8 Total Bilirubin 1.1 AST 18 ALT 23 Alkaline Phosphatase 92 Total Protein 7.1 Albumin 3.4 Globulin 3.7 Albumin/Globulin Ratio 0.9 L Procalcitonin 8.33 H - EKG Data EKG Interpreted by: Myself EKG shows normal: Sinus rhythm Rate: Normal - Imaging and Cardiology Chest x-ray Status: Report reviewed by me CT scan - abdomen Status: Report reviewed by me Abdominal x-ray Status: Report reviewed by me Assessment & Plan (1) Small bowel obstruction due to adhesions Assessment and Plan: NPO NGT IVF PAIN management sx on board d\w patient Status: Acute (2) Essential (primary) hypertension Status: Chronic Comment: hold po meds. start on ctapress0.1 mg q72. (3) Hypokalemia Status: Resolved Comment: k-replaced. k-normal (4) UTI (urinary tract infection) Status: Acute Comment: on cipro. UA-small LE. URINE C\S Decision To Admit - Pt Status Changed To: Hospital Disposition Of: Inpatient Admission - Admit Certification Admit to Inpatient:: After my assessment, the patient will require hospitalization for at least two midnights. This is because of the severity of symptoms shown, intensity of services needed, and/or the medical risk in this patient being treated as an outpatient. - . Bed Request Type: Med/Surg Admitting Physician: Lupe Morrell
[2016-12-10 07:40] LABS: BASO # 0.03 K/mm3 (0.0-2.0); BASO % 0.3 % (0.0-3.0); EOS # 0.2 (0.0-0.7); EOS % 1.9 % (1.5-5.0); GRAN # 6.99 (1.4-6.5); GRAN % 75.1 % (50.0-68.0); HEMOGLOBIN 11.5 gm/dL (12.0-16.0); LYMPH # 1.1 (1.2-3.4); MEAN CELL VOLUME 91.9 fL (80.0-105.0); MEAN CORPUSCULAR HEMOGLOBIN 30.2 pg (25.0-35.0); MEAN CORPUSCULAR HGB CONC 32.9 g/dl (31.0-37.0); MEAN PLATELET VOLUME 10.4 fl (7.0-11.0); MONO % 10.7 % (1.0-6.0); PLATELET COUNT 210 10^3/uL (120.0-450.0); RBC 3.81 10^6/uL (3.5-6.1); RED CELL DISTRIBUTION WIDTH 13.4 % (11.5-14.5); WHITE BLOOD COUNT 9.3 10^3/ul (4.5-11.0)
--- NOTE | 2016-12-10 08:36 | CP.PCM.PN ---
<Henry Keenan - Last Filed: 12/10/16 08:42> Subjective - Date & Time of Evaluation Date of Evaluation: 12/10/16 Time of Evaluation: 08:28 - Subjective Subjective: General Surgery Dr. Sargent Patient seen and examined this morning at bedside. No acute events overnight. Patient complains of pain in the lower portion of her abdomen. She has not passed any flatus, has not passed a BM. Patient is still NPO. Objective - Vital Signs/Intake and Output Vital Signs (last 24 hours): Temp Pulse Resp BP Pulse Ox 98.6 F 76 20 160/91 H 96 12/09/16 16:00 12/09/16 18:33 12/09/16 16:00 12/09/16 18:33 12/09/16 16:00 Intake and Output: 12/10/16 12/10/16 06:59 18:59 Intake Total 1440 Output Total 500 Balance 940 - Medications Medications: Current Medications Enoxaparin Sodium (Lovenox) 40 mg SC DAILY [facility] PRN Reason: Protocol Home Med (Home Med) 1 unit PO DAILY [facility] Dextrose/Sodium Chloride (Dextrose 5%/0.45% Ns 1000 Ml) 1,000 mls @ 60 mls/hr IV .[id number] [facility] Last Admin: 12/09/16 21:43 Dose: 60 mls/hr Morphine Sulfate (Morphine) 2 mg IVP Q4H PRN PRN Reason: Pain, moderate (4-7) Last Admin: 12/09/16 21:46 Dose: 2 mg - Labs Labs: 12/10/16 05:45 12/09/16 05:00 - Constitutional Appears: Non-toxic, No Acute Distress - Head Exam Head Exam: ATRAUMATIC, NORMOCEPHALIC - Eye Exam Eye Exam: EOMI - ENT Exam ENT Exam: Mucous Membranes Moist - Respiratory Exam Respiratory Exam: NORMAL BREATHING PATTERN. absent: Accessory Muscle Use, Respiratory Distress - Cardiovascular Exam Cardiovascular Exam: REGULAR RHYTHM - GI/Abdominal Exam GI & Abdominal Exam: Distended, Guarding, Soft, Tenderness Additional comments: NGT drained 450cc of dark billious material. - Neurological Exam Neurological Exam: Alert, Awake, Oriented x3 - Psychiatric Exam Psychiatric exam: Normal Affect, Normal Mood - Skin Skin Exam: Dry, Normal Color, Warm Assessment and Plan - Assessment and Plan (Free Text) Assessment: 71 year old F with SBO. Plan: Patient put on schedule for OR tomorrow. NPO Keep NGT in place Pain management Will discuss with Dr. Rosetta Figueroa Ree PGY 1 <Jerry Sargent - Last Filed: 12/13/16 18:10> Objective - Vital Signs/Intake and Output Vital Signs (last 24 hours): Temp Pulse Resp BP Pulse Ox 98 F 77 18 158/84 H 100 12/13/16 16:00 12/13/16 16:00 12/13/16 16:00 12/13/16 16:00 12/13/16 16:00 Intake and Output: 12/13/16 12/13/16 06:59 18:59 Intake Total 1600 Output Total 715 1814 Balance 885 -1814 - Medications Medications: Current Medications Acetaminophen (Tylenol 650 Mg Supp) 650 mg RC Q6H PRN PRN Reason: Fever >100.4 F Enoxaparin Sodium (Lovenox) 40 mg SC DAILY [facility] PRN Reason: Protocol Last Admin: 12/13/16 09:14 Dose: 40 mg Home Med (Home Med) 1 unit PO DAILY [facility] Hydromorphone HCl (Dilaudid) 0.5 mg IVP Q3 PRN PRN Reason: Pain, moderate (4-7) Last Admin: 12/13/16 09:12 Dose: 0.5 mg Metronidazole (Flagyl) 500 mg in 100 mls @ 100 mls/hr IVPB Q8 [facility] PRN Reason: Protocol Last Admin: 12/13/16 13:59 Dose: 100 mls/hr Ceftriaxone Sodium (Rocephin 1 Gram Ivpb) 1 gm in 100 mls @ 100 mls/hr IVPB DAILY [facility] PRN Reason: Protocol Last Admin: 12/13/16 09:14 Dose: 100 mls/hr Dextrose/Sodium Chloride (Dextrose 5%/0.45% Ns 1000 Ml) 1,000 mls @ 100 mls/hr IV .Q10H [facility] Last Admin: 12/13/16 11:28 Dose: 100 mls/hr Potassium Chloride 40 meq/ (Dextrose/Sodium Chloride) 1,020 mls @ 100 mls/hr IV .[id number] [facility] Stop: 12/14/16 08:08 Last Admin: 12/13/16 11:45 Dose: 100 mls/hr - Labs Labs: 12/13/16 06:00 12/13/16 06:00 PT 10.7 Seconds (9.9-11.8) 12/11/16 06:00 INR 0.99 (0.93-1.08) 12/11/16 06:00 APTT 33.0 Seconds (23.7-30.8) H 12/11/16 06:00 Assessment and Plan - Assessment and Plan (Free Text) Plan: Patient was seen and examined by me. I agree with assessment and plan as per resident's note. Plan for the operating room tomorrow if patient is not improved by the morning.
[2016-12-10] MEDS: Dextrose 5%/0.45% NS 1,000 ML IV SCH (08:50)
[2016-12-10 09:23] LABS: ALB/GLOB RATIO 0.9 (1.1-1.8); ALBUMIN 3.3 g/dL (3.0-4.8); ALT/SGPT 21 U/L (7-56); AST/SGOT 17 U/L (15-39); BLOOD UREA NITROGEN 13 mg/dL (7-21); CALCIUM 8.8 mg/dL (8.4-10.5); GFR AFRICAN-AMERICAN > 60; GFR NON-AFRICAN AMERICAN > 60
[2016-12-10] MEDS: Enoxaparin 40 mg Syringe SC SCH (09:32)
--- NOTE | 2016-12-10 10:44 | RAD ---
HISTORY: abdominal pain COMPARISON: No prior. FINDINGS: LUNGS: No active pulmonary disease. PLEURA: No significant pleural effusion identified, no pneumothorax apparent. CARDIOVASCULAR: Borderline cardiomegaly versus technical magnification. No pulmonary vascular derangement. OSSEOUS STRUCTURES: No significant abnormalities. VISUALIZED UPPER ABDOMEN: Normal. OTHER FINDINGS: None. IMPRESSION: No active pulmonary disease. Borderline cardiomegaly versus technical magnification.
--- NOTE | 2016-12-10 10:45 | CT ---
PROCEDURE: CT Abdomen and Pelvis with contrast HISTORY: abdominal pain COMPARISON: None. TECHNIQUE: Helical CT of the abdomen pelvis was performed following oral and dynamic intravenous contrast administration. Contrast dose: Omnipaque 350 were-100 cc Radiation dose: Total exam DLP = 723 mGy-cm. This CT exam was performed using one or more of the following dose reduction techniques: Automated exposure control, adjustment of the mA and/or kV according to patient size, and/or use of iterative reconstruction technique. FINDINGS: LOWER THORAX: Unremarkable. 3.5 mm nodular focus is appreciated the right middle lobe laterally in image 2 series 4 which appears noncalcified. No additional pertinent basilar findings bilaterally. Chest is advised in 12 months to demonstrate stability of this finding. LIVER: Unremarkable. No gross lesion or ductal dilatation. GALLBLADDER AND BILE DUCTS: The gallbladder appears distended but is otherwise unremarkable no radiodense cholelithiasis is associated. PANCREAS: Unremarkable. No gross lesion or ductal dilatation. SPLEEN: Unremarkable. ADRENALS: 1.8 x 1.2 cm left adrenal lesion is identified measuring 79 Hounsfield units. This cannot be characterized as a benign adrenal adenoma at this time. Follow-up MRI is advised without contrast for greater characterization. Right adrenal gland appears normal. KIDNEYS AND URETERS: No obstructive uropathy, perinephric reaction or delayed nephrogram bilaterally. No discrete cyst or solid parenchymal mass is identified. VASCULATURE: Unremarkable. No aortic aneurysm. BOWEL: Small bowel is dilated with a transition appearing to occur at the right lower quadrant and a relatively long segment of small bowel. Trace fluid seen inferior pelvis. No free adrenal gas identified in the appendix appears normal. Large bowel is only mildly distended with sigmoid diverticular change identified. The pattern appears to reflect a developing distal small bowel obstruction. Further clinical correlation is advised. No definite colonic diverticulitis is felt to be present however is difficult to evaluate this area due to local fluid in the pelvis. APPENDIX: Normal appendix. PERITONEUM: Limited pelvic fluid. No free air. LYMPH NODES: Unremarkable. No enlarged lymph nodes. BLADDER: Unremarkable. REPRODUCTIVE: Apparent prior hysterectomy. . BONES: Mild lumbar scoliosis. Mild multilevel thoracolumbar spondylosis. OTHER FINDINGS: None. IMPRESSION: 1. Findings most compatible with a distal small-bowel obstruction the transition appears to be the right lower quadrant consider possible adhesion in of there are no obvious postoperative changes appreciated in this location. A stricture is a differential diagnostic possibility. Continued clinical correlation is advised. 2. Likely non acute sigmoid diverticulosis. The series difficult without due to limited local fluid likely related to bowel obstruction discussed above. 3. 1.8 cm left adrenal nodule for which follow-up MRI is advised without contrast but including chemical shift to exclude potential malignancy. 4. Incidental right middle lobe nodule for which follow-up chest is advised since 12 months to demonstrate stability of this finding.
[2016-12-10] MEDS ORDERED: Potassium Chloride 30 MEQ in Dextrose 5%/0.45% NS 1,000 ML IV SCH (11:45)
--- NOTE | 2016-12-10 20:56 | CP.PCM.PN ---
Subjective - Date & Time of Evaluation Date of Evaluation: 12/10/16 Time of Evaluation: 09:00 - Subjective Subjective: feels better than before. less pain, NG out put- 450cc overnight mild blood tinged Patient complains of pain in the lower portion of her abdomen. She has not passed any flatus, has not passed a BM. Patient is still NPO. BP was high side, IV changed half NS Objective - Vital Signs/Intake and Output Vital Signs (last 24 hours): Temp Pulse Resp BP Pulse Ox 98 F 83 20 148/92 H 96 12/10/16 16:00 12/10/16 16:00 12/10/16 16:00 12/10/16 16:00 12/10/16 16:00 Intake and Output: 12/10/16 12/11/16 18:59 06:59 Intake Total 0 Balance 0 - Medications Medications: Current Medications Enoxaparin Sodium (Lovenox) 40 mg SC DAILY [facility] PRN Reason: Protocol Last Admin: 12/10/16 09:32 Dose: 40 mg Home Med (Home Med) 1 unit PO DAILY [facility] Potassium Chloride 30 meq/ (Dextrose/Sodium Chloride) 1,015 mls @ 100 mls/hr IV .Q10H9M [facility] Last Admin: 12/10/16 14:12 Dose: 100 mls/hr Morphine Sulfate (Morphine) 2 mg IVP Q4H PRN PRN Reason: Pain, moderate (4-7) Last Admin: 12/09/16 21:46 Dose: 2 mg - Labs Labs: 12/10/16 05:45 12/10/16 09:15 - Additional Findings Additional findings: - Constitutional Appears: not in Acute Distress NGT - Head Exam Head Exam: ATRAUMATIC, NORMAL INSPECTION - Eye Exam Eye Exam: EOMI, Normal appearance, PERRL - ENT Exam ENT Exam: Mucous Membranes Dry - Neck Exam Neck exam: Positive for: Normal Inspection. Negative for: Lymphadenopathy - Respiratory Exam Respiratory Exam: Clear to Auscultation Bilateral, NORMAL BREATHING PATTERN. absent: Wheezes - Cardiovascular Exam Cardiovascular Exam: REGULAR RHYTHM, +S1, +S2. absent: Systolic Murmur - GI/Abdominal Exam GI & Abdominal Exam: normal Bowel Sounds, Soft. decrease distention absent: Tenderness - Extremities Exam Extremities exam: Positive for: normal inspection, pedal pulses present. Negative for: pedal edema - Back Exam Back exam: absent: paraspinal tenderness - Neurological Exam Neurological exam: Alert, CN II-XII Intact, Oriented x3 - Psychiatric Exam Psychiatric exam: Normal Affect, Normal Mood - Skin Skin Exam: Intact Assessment and Plan (1) Small bowel obstruction due to adhesions Status: Acute (2) Essential (primary) hypertension Status: Chronic (3) Hypokalemia Status: Resolved (4) UTI (urinary tract infection) Status: Acute - Assessment and Plan (Free Text) Plan: continue NGT IVF needs parental nutrition if need NPO more. continue all other meds.
[2016-12-11 06:24] LABS: BASO # 0.02 K/mm3 (0.0-2.0); BASO % 0.2 % (0.0-3.0); EOS # 0.2 (0.0-0.7); EOS % 1.8 % (1.5-5.0); GRAN # 5.58 (1.4-6.5); GRAN % 68.5 % (50.0-68.0); HEMOGLOBIN 11.5 gm/dL (12.0-16.0); LYMPH # 1.5 (1.2-3.4); LYMPH % 17.8 % (22.0-35.0); MEAN CELL VOLUME 88.1 fL (80.0-105.0); MEAN CORPUSCULAR HEMOGLOBIN 29.8 pg (25.0-35.0); MEAN CORPUSCULAR HGB CONC 33.8 g/dl (31.0-37.0); MEAN PLATELET VOLUME 9.7 fl (7.0-11.0); MONO % 11.7 % (1.0-6.0); PLATELET COUNT 212 10^3/uL (120.0-450.0); RBC 3.86 10^6/uL (3.5-6.1); RED CELL DISTRIBUTION WIDTH 13.1 % (11.5-14.5); WHITE BLOOD COUNT 8.2 10^3/ul (4.5-11.0)
[2016-12-11 06:29] LABS: INR 0.99 (0.93-1.08); PROTHROMBIN TIME 10.7 Seconds (9.9-11.8)
[2016-12-11 07:10] LABS: ALB/GLOB RATIO 0.9 (1.1-1.8); ALBUMIN 3.3 g/dL (3.0-4.8); ALT/SGPT 18 U/L (7-56); AST/SGOT 16 U/L (15-39); BLOOD UREA NITROGEN 10 mg/dL (7-21); CALCIUM 8.6 mg/dL (8.4-10.5); GFR AFRICAN-AMERICAN > 60; GFR NON-AFRICAN AMERICAN > 60
[2016-12-11] MEDS: Enoxaparin 40 mg Syringe SC SCH (08:59)
[2016-12-11] MEDS ORDERED: Bupivacaine 0.5% Inj(30mL) ONE (14:21)
[2016-12-11] MEDS ORDERED: Propofol 10 mg/ml Inj (20 ML) ONE (14:25)
[2016-12-11] MEDS ORDERED: Succinylcholine 200 mg/10 ml Inj IV ONE ×2 (14:26)
[2016-12-11] MEDS ORDERED: Midazolam 2 MG/2 ML VIAL ONE (14:26)
[2016-12-11] MEDS ORDERED: Rocuronium 10 mg/ml (5 ml) ONE (14:46)
[2016-12-11] MEDS ORDERED: Lactated Ringer's 1,000 ML IV SCH ×2 (15:56→17:22)
[2016-12-11] MEDS ORDERED: HYDROmorphone 0.5 mg/0.5 ml ISec IVP PRN ×2 (15:56→17:22)
[2016-12-11] MEDS ORDERED: Sevoflurane - Inhalation Anesthetic Liq (250 ml) ONE (16:55)
[2016-12-11] MEDS ORDERED: Desflurane Inhalation Anesthetic Liq (240 ml) ONE (16:56)
--- NOTE | 2016-12-11 17:28 | PCM.SURG1 ---
Surgeon's Initial Post Op Note - Surgeon's Notes Surgeon: Dr. Sargent Night Manager: Dr. Sims PGY3; Dr. Morales PGY2; Dr. Rome PGY1; Dr. Mansfield Type of Anesthesia: General Endo Anesthesia Administered By: Steve Pre-Operative Diagnosis: Small bowel obstruction Operative Findings: perforated sigmoid diverticulitis with abscess Post-Operative Diagnosis: Perforated Diverticulitis with abscess Operation Performed: Diagnostic Laparoscopy converted to Laparotomy. Sigmoid resection with End Colostomy (Ramona's procedure). Drainage of Pelvic Abscess. Lysis of adhesions. Partial Left Salpingectomy Specimen/Specimens Removed: portion of Sigmoid colon, Portion of left fallopian tube Estimated Blood Loss: EBL {In ML}: 30 Blood Products Given: N/A Drains Used: Meir Post-Op Condition: Good Date of Surgery/Procedure: 12/11/16 Time of Surgery/Procedure: 17:28
[2016-12-11] MEDS ORDERED: cefTRIAXone (Rocephin) 1 gm Inj ONE (17:52)
[2016-12-11] MEDS ORDERED: cefTRIAXone (Rocephin) 1 gm Inj IVPB ONE (17:58)
[2016-12-11] MEDS: cefTRIAXone 1 gm 1 GM/100 ML BAG IVPB SCH (18:00)
[2016-12-11] MEDS: HYDROmorphone 0.2 mg/ml (25ml) 25 ML IV PRN (19:00)
[2016-12-11] MEDS ORDERED: Piperacillin/Tazobact 3.375 gm 100 ML IVPB SCH (20:00)
[2016-12-11] MEDS: metroNIDAZOLE IV 500 mg/100 ml 500 MG/100 ML BAG IVPB SCH (21:51)
[2016-12-11] MEDS: Lactated Ringer's 1,000 ML IV SCH (21:54)
--- NOTE | 2016-12-12 00:06 | CP.PCM.PN ---
Subjective - Date & Time of Evaluation Date of Evaluation: 12/11/16 Time of Evaluation: 10:00 - Subjective Subjective: for sx today. no new issues,no sig improvement. Objective - Vital Signs/Intake and Output Vital Signs (last 24 hours): Temp Pulse Resp BP Pulse Ox 98.7 F 78 20 135/76 98 12/11/16 18:21 12/11/16 18:21 12/11/16 18:21 12/11/16 18:21 12/11/16 18:21 Intake and Output: 12/11/16 12/12/16 18:59 06:59 Intake Total 1000 0 Output Total 300 200 Balance 700 -200 - Medications Medications: Current Medications Acetaminophen (Tylenol 650 Mg Supp) 650 mg RC Q6H PRN PRN Reason: Fever >100.4 F Enoxaparin Sodium (Lovenox) 40 mg SC DAILY [facility] PRN Reason: Protocol Last Admin: 12/11/16 08:59 Dose: Not Given Home Med (Home Med) 1 unit PO DAILY [facility] Hydromorphone HCl (Dilaudid 0.2 Mg/Ml Inter Com Servicer) 25 mls @ 0 mls/hr IV PRN PRN; Per Protocol PRN Reason: CLINICAL EDUCATION ACADEMIC COORDINATOR PER MD ORDER Stop: 12/12/16 17:25 Last Admin: 12/11/16 19:00 Dose: 0.0001 mls/hr Lactated Ringer's (Lactated Ringer's) 1,000 mls @ 100 mls/hr IV .Q10H [facility] Last Admin: 12/11/16 21:54 Dose: 100 mls/hr Metronidazole (Flagyl) 500 mg in 100 mls @ 100 mls/hr IVPB Q8 [facility] PRN Reason: Protocol Last Admin: 12/11/16 21:51 Dose: 100 mls/hr Ceftriaxone Sodium (Rocephin 1 Gram Ivpb) 1 gm in 100 mls @ 100 mls/hr IVPB DAILY [facility] PRN Reason: Protocol Last Admin: 12/11/16 18:00 Dose: 100 mls/hr - Labs Labs: 12/11/16 06:00 12/11/16 06:00 PT 10.7 Seconds (9.9-11.8) 12/11/16 06:00 INR 0.99 (0.93-1.08) 12/11/16 06:00 APTT 33.0 Seconds (23.7-30.8) H 12/11/16 06:00 Assessment and Plan (1) Small bowel obstruction due to adhesions Status: Acute (2) Essential (primary) hypertension Status: Chronic (3) Hypokalemia Status: Resolved (4) UTI (urinary tract infection) Status: Acute
[2016-12-12] MEDS: Lactated Ringer's 500 ML IV SCH ×3 (06:00→14:48)
[2016-12-12] MEDS: metroNIDAZOLE IV 500 mg/100 ml 500 MG/100 ML BAG IVPB SCH ×3 (06:13→22:18)
[2016-12-12] MEDS: Lactated Ringer's 1,000 ML IV SCH (06:22)
[2016-12-12 07:29] LABS: BASO # 0.02 K/mm3 (0.0-2.0); BASO % 0.3 % (0.0-3.0); EOS % 0.2 % (1.5-5.0); GRAN # 4.45 (1.4-6.5); GRAN % 67.1 % (50.0-68.0); LYMPH # 1.1 (1.2-3.4); LYMPH % 16.6 % (22.0-35.0); MEAN CELL VOLUME 88.7 fL (80.0-105.0); MEAN CORPUSCULAR HEMOGLOBIN 28.9 pg (25.0-35.0); MEAN CORPUSCULAR HGB CONC 32.6 g/dl (31.0-37.0); MEAN PLATELET VOLUME 9.4 fl (7.0-11.0); MONO # 1.1 (0.1-0.6); MONO % 15.8 % (1.0-6.0); PLATELET COUNT 236 10^3/uL (120.0-450.0); RED CELL DISTRIBUTION WIDTH 13.3 % (11.5-14.5); WHITE BLOOD COUNT 6.6 10^3/ul (4.5-11.0)
[2016-12-12 07:51] LABS: ALB/GLOB RATIO 0.8 (1.1-1.8); ALBUMIN 2.7 g/dL (3.0-4.8); ALT/SGPT 20 U/L (7-56); AST/SGOT 20 U/L (15-39); BLOOD UREA NITROGEN 16 mg/dL (7-21); CALCIUM 8.5 mg/dL (8.4-10.5); GFR AFRICAN-AMERICAN > 60; GFR NON-AFRICAN AMERICAN > 60
[2016-12-12] MEDS: Enoxaparin 40 mg Syringe SC SCH (09:48)
[2016-12-12] MEDS: cefTRIAXone 1 gm 1 GM/100 ML BAG IVPB SCH (09:49)
[2016-12-12] MEDS: HYDROmorphone 0.2 mg/ml (25ml) 25 ML IV PRN (09:51)
[2016-12-12] MEDS ORDERED: Sodium Chloride 0.9% 100 ML IV SCH (11:35)
--- NOTE | 2016-12-12 12:09 | CP.PCM.PN ---
<Mike Morales - Last Filed: 12/12/16 12:04> Subjective - Date & Time of Evaluation Date of Evaluation: 12/12/16 Time of Evaluation: 09:00 - Subjective Subjective: SURGERY NOTE FOR DR. SARGENT 71F seen and examined at bedside. NAEON. Patient pain controlled with medication , denies nausea, vomiting. No current ostomy output. Objective - Vital Signs/Intake and Output Vital Signs (last 24 hours): Temp Pulse Resp BP Pulse Ox 98.7 F 78 20 135/76 98 12/11/16 18:21 12/11/16 18:21 12/11/16 18:21 12/11/16 18:21 12/11/16 18:21 Intake and Output: 12/12/16 12/12/16 06:59 18:59 Intake Total 0 Output Total 200 Balance -200 - Medications Medications: Current Medications Acetaminophen (Tylenol 650 Mg Supp) 650 mg RC Q6H PRN PRN Reason: Fever >100.4 F Enoxaparin Sodium (Lovenox) 40 mg SC DAILY [facility] PRN Reason: Protocol Last Admin: 12/12/16 09:48 Dose: 40 mg Home Med (Home Med) 1 unit PO DAILY [facility] Hydromorphone HCl (Dilaudid 0.2 Mg/Ml Contact Acid Plant Operator) 25 mls @ 0 mls/hr IV PRN PRN; Per Protocol PRN Reason: CERAMIC CAPACITOR PROCESSOR PER MD ORDER Stop: 12/12/16 17:25 Last Admin: 12/12/16 09:51 Dose: 0.2 mls/hr Metronidazole (Flagyl) 500 mg in 100 mls @ 100 mls/hr IVPB Q8 [facility] PRN Reason: Protocol Last Admin: 12/12/16 06:13 Dose: 100 mls/hr Ceftriaxone Sodium (Rocephin 1 Gram Ivpb) 1 gm in 100 mls @ 100 mls/hr IVPB DAILY [facility] PRN Reason: Protocol Last Admin: 12/12/16 09:49 Dose: 100 mls/hr Lactated Ringer's (Lactated Ringer's) 500 mls @ 250 mls/hr IV .Q2H [facility] Last Admin: 12/12/16 07:57 Dose: 250 mls/hr Sodium Chloride (Sodium Chloride 0.9%) 100 mls @ 150 mls/hr IV .Q40M [facility] Last Admin: 12/12/16 11:50 Dose: 150 mls/hr - Labs Labs: 12/12/16 06:30 12/12/16 06:30 PT 10.7 Seconds (9.9-11.8) 12/11/16 06:00 INR 0.99 (0.93-1.08) 12/11/16 06:00 APTT 33.0 Seconds (23.7-30.8) H 12/11/16 06:00 - Constitutional Appears: Non-toxic, No Acute Distress - Head Exam Head Exam: ATRAUMATIC - ENT Exam ENT Exam: Mucous Membranes Moist - Respiratory Exam Respiratory Exam: Clear to Ausculation Bilateral, NORMAL BREATHING PATTERN - Cardiovascular Exam Cardiovascular Exam: REGULAR RHYTHM, +S1, +S2 - GI/Abdominal Exam GI & Abdominal Exam: Soft, Tenderness. absent: Distended, Firm, Guarding, Rigid , Rebound Additional comments: ostomy in place - no output STACIE drain - 75cc/serosang NGT - no output overnight - Neurological Exam Neurological Exam: Alert, Awake - Skin Skin Exam: Dry, Intact, Normal Color, Warm Assessment and Plan - Assessment and Plan (Free Text) Assessment: 71F s/p hartmanns procedure POD1, with perforated diverticulitis with abscess Plan: - NGT discontinue - Hourly Is:Os - monitor for ostomy output - continue antibiotics/ pain control/IVF - out of bed to care - AE hose/GI ppx Discussed with Dr. Rosetta Morales, PGY2 <Jerry Sargent - Last Filed: 12/13/16 18:13> Objective - Vital Signs/Intake and Output Vital Signs (last 24 hours): Temp Pulse Resp BP Pulse Ox 98 F 77 18 158/84 H 100 12/13/16 16:00 12/13/16 16:00 12/13/16 16:00 12/13/16 16:00 12/13/16 16:00 Intake and Output: 12/13/16 12/13/16 06:59 18:59 Intake Total 1600 Output Total 715 1814 Balance 885 -1814 - Medications Medications: Current Medications Acetaminophen (Tylenol 650 Mg Supp) 650 mg RC Q6H PRN PRN Reason: Fever >100.4 F Enoxaparin Sodium (Lovenox) 40 mg SC DAILY [facility] PRN Reason: Protocol Last Admin: 12/13/16 09:14 Dose: 40 mg Home Med (Home Med) 1 unit PO DAILY [facility] Hydromorphone HCl (Dilaudid) 0.5 mg IVP Q3 PRN PRN Reason: Pain, moderate (4-7) Last Admin: 12/13/16 09:12 Dose: 0.5 mg Metronidazole (Flagyl) 500 mg in 100 mls @ 100 mls/hr IVPB Q8 [facility] PRN Reason: Protocol Last Admin: 12/13/16 13:59 Dose: 100 mls/hr Ceftriaxone Sodium (Rocephin 1 Gram Ivpb) 1 gm in 100 mls @ 100 mls/hr IVPB DAILY [facility] PRN Reason: Protocol Last Admin: 12/13/16 09:14 Dose: 100 mls/hr Dextrose/Sodium Chloride (Dextrose 5%/0.45% Ns 1000 Ml) 1,000 mls @ 100 mls/hr IV .Q10H [facility] Last Admin: 12/13/16 11:28 Dose: 100 mls/hr Potassium Chloride 40 meq/ (Dextrose/Sodium Chloride) 1,020 mls @ 100 mls/hr IV .[id number] [facility] Stop: 12/14/16 08:08 Last Admin: 12/13/16 11:45 Dose: 100 mls/hr - Labs Labs: 12/13/16 06:00 12/13/16 06:00 PT 10.7 Seconds (9.9-11.8) 12/11/16 06:00 INR 0.99 (0.93-1.08) 12/11/16 06:00 APTT 33.0 Seconds (23.7-30.8) H 12/11/16 06:00 Assessment and Plan - Assessment and Plan (Free Text) Plan: Patient was seen and examined by me. I agree with assessment and plan as per resident's note.
[2016-12-12] MEDS: Dextrose 5%/0.45% NS 1,000 ML IV SCH ×2 (12:16→20:53)
--- NOTE | 2016-12-13 00:13 | CP.PCM.PN ---
Subjective - Date & Time of Evaluation Date of Evaluation: 12/12/16 Time of Evaluation: 09:00 - Subjective Subjective: last night out was less,given 500cc,responing well. BP stable still did not pass gas\hungry Objective - Vital Signs/Intake and Output Vital Signs (last 24 hours): Temp Pulse Resp BP Pulse Ox 98.2 F 78 20 127/67 99 12/12/16 18:00 12/12/16 18:00 12/12/16 18:00 12/12/16 18:00 12/12/16 06:00 Intake and Output: 12/12/16 12/13/16 18:59 06:59 Intake Total 0 Output Total 370 Balance -370 - Medications Medications: Current Medications Acetaminophen (Tylenol 650 Mg Supp) 650 mg RC Q6H PRN PRN Reason: Fever >100.4 F Enoxaparin Sodium (Lovenox) 40 mg SC DAILY [facility] PRN Reason: Protocol Last Admin: 12/12/16 09:48 Dose: 40 mg Home Med (Home Med) 1 unit PO DAILY [facility] Metronidazole (Flagyl) 500 mg in 100 mls @ 100 mls/hr IVPB Q8 [facility] PRN Reason: Protocol Last Admin: 12/12/16 22:18 Dose: 100 mls/hr Ceftriaxone Sodium (Rocephin 1 Gram Ivpb) 1 gm in 100 mls @ 100 mls/hr IVPB DAILY [facility] PRN Reason: Protocol Last Admin: 12/12/16 09:49 Dose: 100 mls/hr Dextrose/Sodium Chloride (Dextrose 5%/0.45% Ns 1000 Ml) 1,000 mls @ 150 mls/hr IV .Q6H40M [facility] Last Admin: 12/12/16 20:53 Dose: 150 mls/hr - Labs Labs: 12/12/16 06:30 12/12/16 06:30 PT 10.7 Seconds (9.9-11.8) 12/11/16 06:00 INR 0.99 (0.93-1.08) 12/11/16 06:00 APTT 33.0 Seconds (23.7-30.8) H 12/11/16 06:00 Assessment and Plan (1) Small bowel obstruction due to adhesions Status: Acute (2) Essential (primary) hypertension Status: Chronic (3) Hypokalemia Status: Resolved (4) UTI (urinary tract infection) Status: Acute
[2016-12-13] MEDS: Dextrose 5%/0.45% NS 1,000 ML IV SCH ×2 (04:58→11:28)
[2016-12-13] MEDS: metroNIDAZOLE IV 500 mg/100 ml 500 MG/100 ML BAG IVPB SCH ×3 (05:02→21:19)
--- NOTE | 2016-12-13 06:24 | CP.PCM.PN ---
<Mike Morales - Last Filed: 12/13/16 06:21> Subjective - Date & Time of Evaluation Date of Evaluation: 12/13/16 Time of Evaluation: 05:30 - Subjective Subjective: SURGERY NOTE FOR DR. SARGENT 71F seen and examined at bedside. MELANY. Patient states pain is controlled, denies nausea, vomiting, subjective fevers. Objective - Vital Signs/Intake and Output Vital Signs (last 24 hours): Temp Pulse Resp BP Pulse Ox 98.2 F 78 20 127/67 99 12/12/16 18:00 12/12/16 18:00 12/12/16 18:00 12/12/16 18:00 12/12/16 06:00 Intake and Output: 12/12/16 12/13/16 18:59 06:59 Intake Total 1600 Output Total 715 Balance 885 - Medications Medications: Current Medications Acetaminophen (Tylenol 650 Mg Supp) 650 mg RC Q6H PRN PRN Reason: Fever >100.4 F Enoxaparin Sodium (Lovenox) 40 mg SC DAILY [facility] PRN Reason: Protocol Last Admin: 12/12/16 09:48 Dose: 40 mg Home Med (Home Med) 1 unit PO DAILY [facility] Hydromorphone HCl (Dilaudid) 0.5 mg IVP Q3 PRN PRN Reason: Pain, moderate (4-7) Metronidazole (Flagyl) 500 mg in 100 mls @ 100 mls/hr IVPB Q8 [facility] PRN Reason: Protocol Last Admin: 12/13/16 05:02 Dose: 100 mls/hr Ceftriaxone Sodium (Rocephin 1 Gram Ivpb) 1 gm in 100 mls @ 100 mls/hr IVPB DAILY [facility] PRN Reason: Protocol Last Admin: 12/12/16 09:49 Dose: 100 mls/hr Dextrose/Sodium Chloride (Dextrose 5%/0.45% Ns 1000 Ml) 1,000 mls @ 150 mls/hr IV .Q6H40M [facility] Last Admin: 12/13/16 04:58 Dose: 150 mls/hr - Labs Labs: 12/12/16 06:30 12/12/16 06:30 PT 10.7 Seconds (9.9-11.8) 12/11/16 06:00 INR 0.99 (0.93-1.08) 12/11/16 06:00 APTT 33.0 Seconds (23.7-30.8) H 12/11/16 06:00 - Constitutional Appears: Non-toxic, No Acute Distress - Respiratory Exam Respiratory Exam: Clear to Ausculation Bilateral, NORMAL BREATHING PATTERN - Cardiovascular Exam Cardiovascular Exam: REGULAR RHYTHM, +S1, +S2 - GI/Abdominal Exam GI & Abdominal Exam: Soft, Tenderness (mildly tender). absent: Distended, Firm , Guarding, Rigid, Rebound Additional comments: - ostomy in place,- no output - STACIE drain - 5cc overnight of serous fluid - urine output - average 37cc/hr in last 9 hours, concentrated Assessment and Plan - Assessment and Plan (Free Text) Assessment: 71F s/p hartmanns procedure POD2, with perforated diverticulitis with abscess Plan: - Hourly Is:Os - monitor for ostomy output - continue antibiotics/ pain control/IVF - out of bed to care/ ambulate - AE hose/GI ppx Discussed with Dr. Rosetta Morales, PGY2 <Jerry Sargent - Last Filed: 12/13/16 18:14> Objective - Vital Signs/Intake and Output Vital Signs (last 24 hours): Temp Pulse Resp BP Pulse Ox 98 F 77 18 158/84 H 100 12/13/16 16:00 12/13/16 16:00 12/13/16 16:00 12/13/16 16:00 12/13/16 16:00 Intake and Output: 12/13/16 12/13/16 06:59 18:59 Intake Total 1600 Output Total 715 1814 Balance 885 -1814 - Medications Medications: Current Medications Acetaminophen (Tylenol 650 Mg Supp) 650 mg RC Q6H PRN PRN Reason: Fever >100.4 F Enoxaparin Sodium (Lovenox) 40 mg SC DAILY [facility] PRN Reason: Protocol Last Admin: 12/13/16 09:14 Dose: 40 mg Home Med (Home Med) 1 unit PO DAILY [facility] Hydromorphone HCl (Dilaudid) 0.5 mg IVP Q3 PRN PRN Reason: Pain, moderate (4-7) Last Admin: 12/13/16 09:12 Dose: 0.5 mg Metronidazole (Flagyl) 500 mg in 100 mls @ 100 mls/hr IVPB Q8 [facility] PRN Reason: Protocol Last Admin: 12/13/16 13:59 Dose: 100 mls/hr Ceftriaxone Sodium (Rocephin 1 Gram Ivpb) 1 gm in 100 mls @ 100 mls/hr IVPB DAILY [facility] PRN Reason: Protocol Last Admin: 12/13/16 09:14 Dose: 100 mls/hr Dextrose/Sodium Chloride (Dextrose 5%/0.45% Ns 1000 Ml) 1,000 mls @ 100 mls/hr IV .Q10H [facility] Last Admin: 12/13/16 11:28 Dose: 100 mls/hr Potassium Chloride 40 meq/ (Dextrose/Sodium Chloride) 1,020 mls @ 100 mls/hr IV .[id number] [facility] Stop: 12/14/16 08:08 Last Admin: 12/13/16 11:45 Dose: 100 mls/hr - Labs Labs: 12/13/16 06:00 12/13/16 06:00 PT 10.7 Seconds (9.9-11.8) 12/11/16 06:00 INR 0.99 (0.93-1.08) 12/11/16 06:00 APTT 33.0 Seconds (23.7-30.8) H 12/11/16 06:00 Assessment and Plan - Assessment and Plan (Free Text) Plan: Patient was seen and examined by me. I agree with assessment and plan as per resident's note.
[2016-12-13 07:08] LABS: BASO # 0.02 K/mm3 (0.0-2.0); BASO % 0.3 % (0.0-3.0); EOS # 0.3 (0.0-0.7); EOS % 3.8 % (1.5-5.0); GRAN # 4.29 (1.4-6.5); GRAN % 64.6 % (50.0-68.0); HEMOGLOBIN 9.6 gm/dL (12.0-16.0); LYMPH # 1.2 (1.2-3.4); LYMPH % 18.3 % (22.0-35.0); MEAN CELL VOLUME 88.6 fL (80.0-105.0); MEAN CORPUSCULAR HEMOGLOBIN 28.7 pg (25.0-35.0); MEAN CORPUSCULAR HGB CONC 32.4 g/dl (31.0-37.0); MEAN PLATELET VOLUME 9.2 fl (7.0-11.0); MONO # 0.9 (0.1-0.6); PLATELET COUNT 240 10^3/uL (120.0-450.0); RBC 3.34 10^6/uL (3.5-6.1); RED CELL DISTRIBUTION WIDTH 13.3 % (11.5-14.5); WHITE BLOOD COUNT 6.6 10^3/ul (4.5-11.0)
[2016-12-13 07:24] LABS: ALB/GLOB RATIO 0.8 (1.1-1.8); ALBUMIN 2.5 g/dL (3.0-4.8); ALT/SGPT 23 U/L (7-56); AST/SGOT 14 U/L (15-39); BLOOD UREA NITROGEN 9 mg/dL (7-21); CALCIUM 7.9 mg/dL (8.4-10.5); GFR AFRICAN-AMERICAN > 60; GFR NON-AFRICAN AMERICAN > 60
[2016-12-13] MEDS: HYDROmorphone 0.5 mg/0.5 ml ISec IVP PRN ×2 (09:12→18:44)
[2016-12-13] MEDS: Enoxaparin 40 mg Syringe SC SCH (09:14)
[2016-12-13] MEDS: cefTRIAXone 1 gm 1 GM/100 ML BAG IVPB SCH (09:14)
[2016-12-13] MEDS ORDERED: Potassium Chloride 40 MEQ in Dextrose 5%/0.45% NS 1,000 ML IV SCH (11:45)
--- NOTE | 2016-12-13 22:26 | CP.PCM.PN ---
Subjective - Date & Time of Evaluation Date of Evaluation: 12/13/16 Time of Evaluation: 07:00 - Subjective Subjective: k-3.2, for clear liquids. symptoms better Objective - Vital Signs/Intake and Output Vital Signs (last 24 hours): Temp Pulse Resp BP Pulse Ox 98 F 77 18 158/84 H 100 12/13/16 16:00 12/13/16 16:00 12/13/16 16:00 12/13/16 16:00 12/13/16 16:00 Intake and Output: 12/13/16 12/14/16 18:59 06:59 Intake Total 420 Output Total 1814 400 Balance -1814 20 - Medications Medications: Current Medications Acetaminophen (Tylenol 650 Mg Supp) 650 mg RC Q6H PRN PRN Reason: Fever >100.4 F Enoxaparin Sodium (Lovenox) 40 mg SC DAILY [facility] PRN Reason: Protocol Last Admin: 12/13/16 09:14 Dose: 40 mg Home Med (Home Med) 1 unit PO DAILY [facility] Hydromorphone HCl (Dilaudid) 0.5 mg IVP Q3 PRN PRN Reason: Pain, moderate (4-7) Last Admin: 12/13/16 18:44 Dose: 0.5 mg Metronidazole (Flagyl) 500 mg in 100 mls @ 100 mls/hr IVPB Q8 [facility] PRN Reason: Protocol Last Admin: 12/13/16 21:19 Dose: 100 mls/hr Ceftriaxone Sodium (Rocephin 1 Gram Ivpb) 1 gm in 100 mls @ 100 mls/hr IVPB DAILY [facility] PRN Reason: Protocol Last Admin: 12/13/16 09:14 Dose: 100 mls/hr Dextrose/Sodium Chloride (Dextrose 5%/0.45% Ns 1000 Ml) 1,000 mls @ 100 mls/hr IV .Q10H [facility] Last Admin: 12/13/16 11:28 Dose: 100 mls/hr Potassium Chloride 40 meq/ (Dextrose/Sodium Chloride) 1,020 mls @ 100 mls/hr IV .[id number] [facility] Stop: 12/14/16 08:08 Last Admin: 12/13/16 11:45 Dose: 100 mls/hr - Labs Labs: 12/13/16 06:00 12/13/16 06:00 PT 10.7 Seconds (9.9-11.8) 12/11/16 06:00 INR 0.99 (0.93-1.08) 12/11/16 06:00 APTT 33.0 Seconds (23.7-30.8) H 12/11/16 06:00 Assessment and Plan (1) Small bowel obstruction due to adhesions Status: Acute (2) Essential (primary) hypertension Status: Chronic (3) Hypokalemia Status: Resolved (4) UTI (urinary tract infection) Status: Acute
--- NOTE | 2016-12-14 01:05 | OP ---
PROCEDURE DATE: 12/11/2016 PREOPERATIVE DIAGNOSIS: Small bowel obstruction. POSTOPERATIVE DIAGNOSIS: Perforated sigmoid diverticulitis with abscess and dense intraabdominal adhesions. PROCEDURE PERFORMED: 1. Diagnostic laparoscopy converted to exploratory laparotomy. 2. Ramona's procedure with partial sigmoid resection. 3. Drainage of the pelvic abscess. 4. Lysis of dense pelvic and intraabdominal adhesions. 5. Partial salpingectomy. SURGEON: Dr. Sargent. CORPORATE AFFAIRS MANAGER: Dr. Sims, Dr. Mansfield, and Dr. Morales. TYPE OF ANESTHESIA: General endotracheal anesthesia. ANESTHESIA ADMINISTERED BY: Dr. Wilson. ESTIMATED BLOOD LOSS: 50 mL. SPECIMENS: 1. Portion of the ovarian tube. 2. Sigmoid colon. 3. Cultures from the abscess. INDICATIONS FOR PROCEDURE: The patient is a 71-year-old female, who came to the hospital with complaint of nausea and some episode of vomiting prior to admission. The patient at that time also complained of some ill-defined lower abdominal pain and discomfort and some distention. The patient denied any fevers or chills, and the patient had normal white count on admission. The patient had a CT scan revealing the presence of a partial small bowel obstruction and was observed *------*. The patient's small bowel, however, was not resolving over a period of time and the decision was made for a diagnostic laparoscopy. DESCRIPTION OF PROCEDURE: The patient was brought to the operating room and placed on operating table in the supine position. The patient was connected to EKG, blood pressure, and pulse oximetry monitors. The patient then underwent general endotracheal anesthesia and was prepped and draped in usual sterile fashion. First, a standard time-out procedure took place and everybody in the room agreed as to the patient's identity, diagnoses, and procedure to be performed. Dr. Mansfield, who is the speech language pathology assistant was present during the entire procedure from the beginning until the end and was vital in assisting me in every aspect of this procedure in order to assure prompt and safe performance of this procedure. First, using a straight laparoscope and a 10 mm access port, access to the abdominal cavity was obtained in the right upper quadrant after the area was infiltrated with lidocaine. This was done under direct vision. Once access to the abdominal cavity was obtained, a pneumoperitoneum was obtained. Careful evaluation of abdominal cavity revealed the presence of multiple adhesions of the omentum and the bowel to the anterior abdominal wall. There was also obvious inflammatory changes throughout the abdomen. There were full areas of yellowish exudate noted around the sides of the abdominal cavity. Careful dissection after placement of the 5 mm trocar in the left mid abdomen in the anterior aspect of the line revealed the presence of more areas of yellowish exudate, indicative of some inflammatory and infectious process going on. We further dissected down towards the pelvis and noted that the sigmoid colon was stacked against the bladder wall. This was carefully dissected out deeper into the pelvis and at some point revealed the presence of a large amount of pus coming out of this cavity. This was suctioned out and at this point, the decision was made to proceed to the open procedure in order to fully evaluate the underlying problem. The midline incision was made using a #15 blade and careful exposure was done with retractors. Now, small bowel was carefully pulled out from the pelvis; however, there were multiple adhesions of the small bowel to the underlying tissues as the patient had a previous surgery consisting of hysterectomy. This was further dissected down and once the small bowel after tedious dissection was removed from the pelvis, further adhesions of the colon to the lateral pelvic wall as well as to itself were tediously dissected. All this dissection took about an hour and 20 minutes of our time. Once fully dissected out and the abscess fully drained from the pelvis, which appeared to be all the way down into the bottom of the pelvis between the colon and the bladder wall. Once this was completely cleared and sent for cultures, I was able to assess the rectosigmoid which appeared to have a small area of induration, possibly representing a sealed perforation. This was then carefully mobilized to the underlying mesentery and transected using TI stapler. The mesentery was transected using a Harmonic scalpel. The distal sigmoid was now carefully detached from its mesentery using Harmonic scalpel for about 15 cm where the large bowel appeared to contain very few diverticula. The inflamed portion of the sigmoid was completely included in the specimen. The proximal sigmoid was now transected using TI stapler and mobilized adequately in order to be able to create a colostomy. Now, the pelvis was copiously irrigated and all the irrigant fluid was suctioned out. There was an area of dense adhesion on the left side of the pelvic wall with persistent bleeding. This was carefully mobilized and appeared to be a remnant portion of the fallopian tube. This was carefully elevated and dissected out and sent as a specimen. At this point, we were able to ligate the underlying vessel in order to control the bleeding. Now, again the abdominal cavity was copiously irrigated throughout the abdomen. All the irrigant fluid was suctioned out. All the areas of fibrous peel were taken off the small bowel. The small bowel was *------* completely and was noted not to have any injury to it. The remaining portion of the colon was also palpated and there was no obvious lesions. After the irrigation fluid was completely suctioned out, I then placed a Meir drain through the right lower quadrant and positioned it down into the pelvis and along the left paracolic gutter. This was sutured to the skin. The colostomy site was now picked and left to mid abdomen about 8 cm distal to the umbilicus and the opening was created using #15 blade. Once opening created, a crucial incision was made in the abdominal fascia. The proximal sigmoid colon was brought out through that incision and sutured to the edges of the fascia using 3-0 silk. Now, the midline incision was closed using #1 PDS in a running fashion. The wound was copiously irrigated and all the irrigant fluid was suctioned out. The bottom of the wound was then carefully packed with some Iodoform gauze in order to avoid infection as this was a perforated abscess contaminated case. As this was done, then subsequently jon were placed in the skin in order to close the incision. Now, attention was turned to the colostomy where the colostomy was matured using 3-0 Vicryl stitches in multiple interrupted bites. Once completely matured, the colostomy appliance was attached to the skin and sterile dressings were applied to the wounds. The patient tolerated the procedure well. The port sites were also closed using 0 Vicryl and 4-0 Monocryl for skin. The patient was now awakened and extubated and transferred to recovery room for further observations. Jerry Sargent MD
[2016-12-14] MEDS: metroNIDAZOLE IV 500 mg/100 ml 500 MG/100 ML BAG IVPB SCH ×3 (05:17→21:06)
[2016-12-14 09:19] LABS: ALB/GLOB RATIO 0.8 (1.1-1.8); ALBUMIN 2.9 g/dL (3.0-4.8); ALT/SGPT 26 U/L (7-56); AST/SGOT 22 U/L (15-39); BLOOD UREA NITROGEN 4 mg/dL (7-21); CALCIUM 8.6 mg/dL (8.4-10.5); GFR AFRICAN-AMERICAN > 60; GFR NON-AFRICAN AMERICAN > 60
[2016-12-14] MEDS: Enoxaparin 40 mg Syringe SC SCH (09:42)
[2016-12-14] MEDS: cefTRIAXone 1 gm 1 GM/100 ML BAG IVPB SCH (09:44)
[2016-12-14 10:01] LABS: HEMOGLOBIN 10.6 gm/dL (12.0-16.0); MEAN CELL VOLUME 89.4 fL (80.0-105.0); MEAN CORPUSCULAR HEMOGLOBIN 29.6 pg (25.0-35.0); MEAN CORPUSCULAR HGB CONC 33.1 g/dl (31.0-37.0); MEAN PLATELET VOLUME 9.2 fl (7.0-11.0); PLATELET COUNT 321 10^3/uL (120.0-450.0); RBC 3.58 10^6/uL (3.5-6.1); RED CELL DISTRIBUTION WIDTH 13.2 % (11.5-14.5); WHITE BLOOD COUNT 7.4 10^3/ul (4.5-11.0)
[2016-12-14 10:27] LABS: BAND 5 % (0-2); EOSINOPHIL 2 % (0.0-3.0); LYMPHOCYTE 19 % (22.0-35.0); MONOCYTE 3 % (1.0-6.0); NEUTROPHIL 71 % (50.0-70.0); PLATELET ESTIMATE NORMAL (NORMAL)
--- NOTE | 2016-12-14 10:47 | CP.PCM.PN ---
Subjective - Date & Time of Evaluation Date of Evaluation: 12/14/16 Time of Evaluation: 10:43 - Subjective Subjective: General Surgery Dr. Sargent 71 year old F seen and examined this morning at beside. No acute events over night. Patient states her pain is still well controlled with [employer]ELOP[employer]ORDINATOR pump discontinued. Tolerating CLD. Denies F/C, N/V, SOB or CP. Objective - Vital Signs/Intake and Output Vital Signs (last 24 hours): Temp Pulse Resp BP Pulse Ox 98.1 F 72 19 146/87 97 12/14/16 07:56 12/14/16 07:56 12/14/16 07:56 12/14/16 07:56 12/14/16 07:56 Intake and Output: 12/14/16 12/14/16 06:59 18:59 Intake Total 420 Output Total 2000 Balance -1580 - Medications Medications: Current Medications Acetaminophen (Tylenol 650 Mg Supp) 650 mg RC Q6H PRN PRN Reason: Fever >100.4 F Enoxaparin Sodium (Lovenox) 40 mg SC DAILY [facility] PRN Reason: Protocol Last Admin: 12/14/16 09:42 Dose: 40 mg Home Med (Home Med) 1 unit PO DAILY [facility] Hydromorphone HCl (Dilaudid) 0.5 mg IVP Q3 PRN PRN Reason: Pain, moderate (4-7) Last Admin: 12/13/16 18:44 Dose: 0.5 mg Metronidazole (Flagyl) 500 mg in 100 mls @ 100 mls/hr IVPB Q8 [facility] PRN Reason: Protocol Last Admin: 12/14/16 05:17 Dose: 100 mls/hr Ceftriaxone Sodium (Rocephin 1 Gram Ivpb) 1 gm in 100 mls @ 100 mls/hr IVPB DAILY [facility] PRN Reason: Protocol Last Admin: 12/14/16 09:44 Dose: 100 mls/hr Dextrose/Sodium Chloride (Dextrose 5%/0.45% Ns 1000 Ml) 1,000 mls @ 100 mls/hr IV .Q10H [facility] Last Admin: 12/13/16 11:28 Dose: 100 mls/hr - Labs Labs: 12/14/16 09:40 12/14/16 08:40 PT 10.7 Seconds (9.9-11.8) 12/11/16 06:00 INR 0.99 (0.93-1.08) 12/11/16 06:00 APTT 33.0 Seconds (23.7-30.8) H 12/11/16 06:00 - Constitutional Appears: No Acute Distress - Eye Exam Eye Exam: EOMI - ENT Exam ENT Exam: Mucous Membranes Moist - Respiratory Exam Respiratory Exam: NORMAL BREATHING PATTERN. absent: Accessory Muscle Use, Respiratory Distress - Cardiovascular Exam Cardiovascular Exam: REGULAR RHYTHM - GI/Abdominal Exam GI & Abdominal Exam: Soft. absent: Guarding Additional comments: STACIE draining serosanguinous fluid. Ostomy bag filled with air. - Neurological Exam Neurological Exam: Alert, Awake, Oriented x3 - Psychiatric Exam Psychiatric exam: Normal Affect, Normal Mood - Skin Skin Exam: Dry, Normal Color, Warm Additional comments: Surgical midline incision - packing located at the inferior portion of incision changed and covered with dressing. Remaining portion of incision covered with iodine solution and left open to air to heal. No current signs of infection, inflammation or drainage. Assessment and Plan - Assessment and Plan (Free Text) Assessment: 71 year old F s/p Hartmanns procedure POD3, with perforated diverticulitis with abscess Plan: Advance to Full Liquid Diet, advance as tolerated. Strict I&O's Monitor for ostomy output Monitor surgical incision for signs of infection - open to air Continue antibiotics/ pain control/IVF OOB AE hose/GI ppx Will discussed with Dr. Rosetta Figueroa Ree PGY 1
[2016-12-14] MEDS: Dextrose 5%/0.45% NS 1,000 ML IV SCH (13:28)
[2016-12-14] MEDS: HYDROmorphone 0.5 mg/0.5 ml ISec IVP PRN ×2 (14:34→21:06)
[2016-12-14 18:04] VITALS: RESP 20
--- NOTE | 2016-12-14 20:25 | CP.PCM.PN ---
Objective - Vital Signs/Intake and Output Vital Signs (last 24 hours): Temp Pulse Resp BP Pulse Ox 98.8 F 76 20 156/91 H 97 12/14/16 16:00 12/14/16 16:00 12/14/16 16:00 12/14/16 16:00 12/14/16 16:00 Intake and Output: 12/14/16 12/15/16 18:59 06:59 Intake Total 600 Balance 600 - Medications Medications: Current Medications Acetaminophen (Tylenol 650 Mg Supp) 650 mg RC Q6H PRN PRN Reason: Fever >100.4 F Enoxaparin Sodium (Lovenox) 40 mg SC DAILY [facility] PRN Reason: Protocol Last Admin: 12/14/16 09:42 Dose: 40 mg Home Med (Home Med) 1 unit PO DAILY [facility] Hydromorphone HCl (Dilaudid) 0.5 mg IVP Q3 PRN PRN Reason: Pain, moderate (4-7) Last Admin: 12/14/16 14:34 Dose: 0.5 mg Metronidazole (Flagyl) 500 mg in 100 mls @ 100 mls/hr IVPB Q8 [facility] PRN Reason: Protocol Last Admin: 12/14/16 13:28 Dose: 100 mls/hr Ceftriaxone Sodium (Rocephin 1 Gram Ivpb) 1 gm in 100 mls @ 100 mls/hr IVPB DAILY [facility] PRN Reason: Protocol Last Admin: 12/14/16 09:44 Dose: 100 mls/hr - Labs Labs: 12/14/16 09:40 12/14/16 08:40 PT 10.7 Seconds (9.9-11.8) 12/11/16 06:00 INR 0.99 (0.93-1.08) 12/11/16 06:00 APTT 33.0 Seconds (23.7-30.8) H 12/11/16 06:00 Assessment and Plan (1) Small bowel obstruction due to adhesions Status: Acute (2) Essential (primary) hypertension Status: Chronic (3) Hypokalemia Status: Resolved (4) UTI (urinary tract infection) Status: Acute
[2016-12-15] MEDS: HYDROmorphone 0.5 mg/0.5 ml ISec IVP PRN (01:40)
[2016-12-15] MEDS: metroNIDAZOLE IV 500 mg/100 ml 500 MG/100 ML BAG IVPB SCH ×2 (05:21→14:00)
--- NOTE | 2016-12-15 08:29 | CP.PCM.PN ---
Subjective - Date & Time of Evaluation Date of Evaluation: 12/15/16 Time of Evaluation: 08:26 - Subjective Subjective: General Surgery Dr. Sargent Patient seen and examined this morning at bedside. No acute events over night. Patient states she is doing very well, her pain is well tolerated. She is tolerating her diet. Denies fever, chills, nausea, vomiting, SOB or CP. Objective - Vital Signs/Intake and Output Vital Signs (last 24 hours): Temp Pulse Resp BP Pulse Ox 98.8 F 76 20 156/91 H 97 12/14/16 16:00 12/14/16 16:00 12/14/16 16:00 12/14/16 16:00 12/14/16 16:00 Intake and Output: 12/15/16 12/15/16 06:59 18:59 Intake Total 0 Output Total 550 Balance -550 - Medications Medications: Current Medications Acetaminophen (Tylenol 650 Mg Supp) 650 mg RC Q6H PRN PRN Reason: Fever >100.4 F Enoxaparin Sodium (Lovenox) 40 mg SC DAILY [facility] PRN Reason: Protocol Last Admin: 12/14/16 09:42 Dose: 40 mg Home Med (Home Med) 1 unit PO DAILY [facility] Hydromorphone HCl (Dilaudid) 0.5 mg IVP Q3 PRN PRN Reason: Pain, moderate (4-7) Last Admin: 12/15/16 01:40 Dose: 0.5 mg Metronidazole (Flagyl) 500 mg in 100 mls @ 100 mls/hr IVPB Q8 [facility] PRN Reason: Protocol Last Admin: 12/15/16 05:21 Dose: 100 mls/hr Ceftriaxone Sodium (Rocephin 1 Gram Ivpb) 1 gm in 100 mls @ 100 mls/hr IVPB DAILY [facility] PRN Reason: Protocol Last Admin: 12/14/16 09:44 Dose: 100 mls/hr - Labs Labs: 12/14/16 09:40 12/14/16 08:40 PT 10.7 Seconds (9.9-11.8) 12/11/16 06:00 INR 0.99 (0.93-1.08) 12/11/16 06:00 APTT 33.0 Seconds (23.7-30.8) H 12/11/16 06:00 - Constitutional Appears: Non-toxic, No Acute Distress - Head Exam Head Exam: ATRAUMATIC, NORMOCEPHALIC - Eye Exam Eye Exam: EOMI - ENT Exam ENT Exam: Mucous Membranes Moist - Respiratory Exam Respiratory Exam: NORMAL BREATHING PATTERN. absent: Accessory Muscle Use, Respiratory Distress - Cardiovascular Exam Cardiovascular Exam: REGULAR RHYTHM - GI/Abdominal Exam GI & Abdominal Exam: Soft. absent: Distended, Guarding, Tenderness Additional comments: STACIE draining serosanguineous fluid, 30cc over 12 hours. Ostomy producing light brown fecal material, approx 170cc over 12 hours. - Exam Additional comments: Voiding 350cc of urine in 12 hrs. - Neurological Exam Neurological Exam: Alert, Awake, Oriented x3 - Psychiatric Exam Psychiatric exam: Normal Affect, Normal Mood - Skin Skin Exam: Dry, Normal Color, Warm Additional comments: Midline surgical incision healing appropriately. No signs of infection, inflammation or drainage. Packing changes daily for inferior portion of incision. Assessment and Plan - Assessment and Plan (Free Text) Assessment: 71 year old F s/p Hartmanns procedure POD4, with perforated diverticulitis with abscess Plan: STACIE drain removed. Packing changes daily. Monitor for ostomy output Monitor surgical incision for signs of infection - open to air Monitor I&O's Switch to PO antibiotics/pain control OOB encouraged AE hose/GI ppx PT eval for discharge to home. Will discussed with Dr. Rosetta Figueroa Ree PGY 1
[2016-12-15 08:34] VITALS: O2SAT 98
[2016-12-15] MEDS ORDERED: Oxycodone/Acetaminophen 5/325 mg Tab PO PRN (08:46)
[2016-12-15] MEDS: cefTRIAXone 1 gm 1 GM/100 ML BAG IVPB SCH (09:15)
[2016-12-15] MEDS: Enoxaparin 40 mg Syringe SC SCH (09:15)
[2016-12-15 17:51] VITALS: BP 153/88; PULSE 76; TEMP 98.2
--- NOTE | 2016-12-15 23:17 | CP.PCM.DIS ---
Provider - Provider Date of Admission: 12/08/16 15:29 Attending physician: Lupe Morrell MD Primary care physician: NO PRIMARY CARE PROVIDER Time Spent in preparation of Discharge (in minutes): 30 Diagnosis - Discharge Diagnosis (1) Small bowel obstruction due to adhesions Status: Acute (2) Essential (primary) hypertension Status: Chronic (3) Hypokalemia Status: Resolved (4) UTI (urinary tract infection) Status: Acute Hospital Course - Lab Results Lab Results: Micro Results 12/11/16 19:24 Other: Please Indicate Gram Stain - Final 12/11/16 19:24 Other: Please Indicate Anaerobic Culture - Final NO ANAEROBES ISOLATED. 12/11/16 19:24 Other: Please Indicate Wound Culture - Final Klebsiella Pneumoniae Ssp Pneu Most Recent Lab Values WBC 7.4 10^3/ul (4.5-11.0) 12/14/16 09:40 RBC 3.58 10^6/uL (3.5-6.1) 12/14/16 09:40 Hgb 10.6 gm/dL (12.0-16.0) L 12/14/16 09:40 Hct 32.0 % (36.0-48.0) L 12/14/16 09:40 MCV 89.4 fL (80.0-105.0) 12/14/16 09:40 MCH 29.6 pg (25.0-35.0) 12/14/16 09:40 MCHC 33.1 g/dl (31.0-37.0) 12/14/16 09:40 RDW 13.2 % (11.5-14.5) 12/14/16 09:40 Plt Count 321 10^3/uL (120.0-450.0) 12/14/16 09:40 MPV 9.2 fl (7.0-11.0) 12/14/16 09:40 Gran % 64.6 % (50.0-68.0) 12/13/16 06:00 Lymph % (Auto) 18.3 % (22.0-35.0) L 12/13/16 06:00 [place] % (Auto) 13.0 % (1.0-6.0) H 12/13/16 06:00 Eos % (Auto) 3.8 % (1.5-5.0) 12/13/16 06:00 Baso % (Auto) 0.3 % (0.0-3.0) 12/13/16 06:00 Gran # 4.29 (1.4-6.5) 12/13/16 06:00 Lymph # 1.2 (1.2-3.4) 12/13/16 06:00 [place] # 0.9 (0.1-0.6) H 12/13/16 06:00 Eos # 0.3 (0.0-0.7) 12/13/16 06:00 Baso # 0.02 K/mm3 (0.0-2.0) 12/13/16 06:00 Neutrophils % (Manual) 71 % (50.0-70.0) H 12/14/16 09:40 Band Neutrophils % 5 % (0-2) H 12/14/16 09:40 Lymphocytes % (Manual) 19 % (22.0-35.0) L 12/14/16 09:40 Monocytes % (Manual) 3 % (1.0-6.0) 12/14/16 09:40 Eosinophils % (Manual) 2 % (0.0-3.0) 12/14/16 09:40 Platelet Evaluation Normal (NORMAL) 12/14/16 09:40 PT 10.7 Seconds (9.9-11.8) 12/11/16 06:00 INR 0.99 (0.93-1.08) 12/11/16 06:00 APTT 33.0 Seconds (23.7-30.8) H 12/11/16 06:00 pO2 141 mm/Hg (30-55) H 12/08/16 11:30 VBG pH 7.50 (7.32-7.43) H 12/08/16 11:30 VBG pCO2 33.0 (40-60) L 12/08/16 11:30 VBG HCO3 25.7 mmol/l (21-28) 12/08/16 11:30 VBG Total CO2 26.7 mmol.L (22-28) 12/08/16 11:30 VBG O2 Sat (Calc) 98.6 % (40-65) H 12/08/16 11:30 VBG Base Excess 2.9 mmol/L (0.0-2.0) H 12/08/16 11:30 VBG Potassium 3.3 mmol/L (3.6-5.2) L 12/08/16 11:30 Sodium 137.0 mmol/L (132-148) 12/08/16 11:30 Chloride 104.0 mmol/L (98-107) 12/08/16 11:30 Glucose 125 mg/dl (65-105) H 12/08/16 11:30 Lactate 1.4 mmol/L (0.7-2.1) 12/08/16 11:30 FiO2 21.0 % 12/08/16 11:30 Sodium 137 mmol/L (132-148) 12/14/16 08:40 Potassium 4.2 mmol/L (3.6-5.0) 12/14/16 08:40 Chloride 102 mmol/L (98-107) 12/14/16 08:40 Carbon Dioxide 27 mmol/L (21-33) 12/14/16 08:40 Anion Gap 12 (10-20) 12/14/16 08:40 BUN 4 mg/dL (7-21) L 12/14/16 08:40 Creatinine 0.5 mg/dL (0.5-1.4) 12/14/16 08:40 Est GFR ( Amer) > 60 12/14/16 08:40 Est GFR (Non-Af Amer) > 60 12/14/16 08:40 Random Glucose 116 mg/dL (70-110) H 12/14/16 08:40 Calcium 8.6 mg/dL (8.4-10.5) 12/14/16 08:40 Total Bilirubin 0.5 mg/dL (0.2-1.3) 12/14/16 08:40 AST 22 U/L (15-39) 12/14/16 08:40 ALT 26 U/L (7-56) 12/14/16 08:40 Alkaline Phosphatase 57 U/L (38-133) 12/14/16 08:40 Lactate Dehydrogenase 462 U/L (333-699) 12/08/16 11:30 Total Creatine Kinase 57 U/L (35-230) 12/08/16 11:30 Troponin I < 0.01 ng/mL 12/08/16 11:30 Total Protein 6.4 g/dL (5.8-8.3) 12/14/16 08:40 Albumin 2.9 g/dL (3.0-4.8) L 12/14/16 08:40 Globulin 3.6 gm/dL 12/14/16 08:40 Albumin/Globulin Ratio 0.8 (1.1-1.8) L 12/14/16 08:40 Lipase < 10 U/L (23-300) L 12/08/16 11:30 Procalcitonin 8.33 NG/ML (0.19-0.49) H 12/08/16 18:40 TSH 3rd Generation 4.13 mIU/mL (0.46-4.68) 12/08/16 11:30 Venous Blood Potassium 3.3 mmol/L (3.6-5.2) L 12/08/16 11:30 Urine Color Yellow (YELLOW) 12/08/16 13:40 Urine Appearance Sl cloudy (CLEAR) 12/08/16 13:40 Urine pH 6.0 (4.7-8.0) 12/08/16 13:40 Ur Specific [place] 1.020 (1.005-1.035) 12/08/16 13:40 Urine Protein 30 mg/dL (<30 mg/dL) H 12/08/16 13:40 Urine Glucose (UA) Negative mg/dL (NEGATIVE) 12/08/16 13:40 Urine Ketones Negative mg/dL (NEGATIVE) 12/08/16 13:40 Urine Blood Large (NEGATIVE) H 12/08/16 13:40 Urine Nitrate Negative (NEGATIVE) 12/08/16 13:40 Urine Bilirubin Negative (NEGATIVE) 12/08/16 13:40 Urine Urobilinogen 0.2 E.U./dL (<1 E.U./dL) 12/08/16 13:40 Ur Leukocyte Esterase Trace [place]/uL (NEGATIVE) H 12/08/16 13:40 Urine RBC Tntc /hpf (0-2) 12/08/16 13:40 Urine WBC 0 - 2 /hpf (0-6) 12/08/16 13:40 Ur Epithelial Cells 3 - 4 /hpf (0-5) 12/08/16 13:40 Urine Bacteria Few (NEG) 12/08/16 13:40 Blood Type O POSITIVE 12/10/16 12:22 Blood Type Confirm O POSITIVE 12/10/16 13:00 Antibody Screen Negative 12/10/16 12:22 BBK History Checked No verified bt 12/10/16 12:22 Discharge Exam - Head Exam Head Exam: ATRAUMATIC, NORMOCEPHALIC Discharge Plan - Follow Up Plan Condition: FAIR Disposition: TRANSF TO SNF Instructions: Colostomy Care (DC), Acute Abdominal Pain (DC), Open Colostomy Reversal (DC), Bowel Obstruction (DC)
== END 2016-12-15 17:51 | DRG 330 ==
LOC: EDUNIT# → EDBD → ED 11:05 → ERH 15:29 → 3RNO 16:15
PROVIDERS: ADMIT Internal Medicine; ATTEND Internal Medicine
PROC: 0W9J0ZX Drainage of Pelvic Cavity, Open Approach, Diagnostic (ICD-10-PCS; 2016-12-11)
PROC: 0UB60ZX Excision of Left Fallopian Tube, Open Approach, Diagnostic (ICD-10-PCS; 2016-12-11)
PROC: 0DN80ZZ Release Small Intestine, Open Approach (ICD-10-PCS; 2016-12-11)
PROC: 0DJD4ZZ Inspection of Lower Intestinal Tract, Percutaneous Endoscopic Approach (ICD-10-PCS; 2016-12-11)
PROC: 0DTN0ZZ Resection of Sigmoid Colon, Open Approach (ICD-10-PCS; principal; 2016-12-11 14:30)
PROC: 0D1N0Z4 Bypass Sigmoid Colon to Cutaneous, Open Approach (ICD-10-PCS; 2016-12-11 14:30)
DX: K56.5 Intestinal adhesions [bands] with obstruction (postinfection) (principal); K57.20 Diverticulitis of large intestine with perforation and abscess without bleeding; N39.0 Urinary tract infection, site not specified; N83.8 Other noninflammatory disorders of ovary, fallopian tube and broad ligament; I10 Essential (primary) hypertension; E87.6 Hypokalemia; E03.9 Hypothyroidism, unspecified; Z53.31 Laparoscopic surgical procedure converted to open procedure; Z90.710 Acquired absence of both cervix and uterus

== ENCOUNTER 2016-12-15 17:51 | Inpatient (IN) | payer MEDICARE, OTHER ==
[2016-12-15 19:40] VITALS: BMI 28.0
--- NOTE | 2016-12-15 21:44 | CP.PCM.PN ---
Subjective - Date & Time of Evaluation Date of Evaluation: 12/15/16 Time of Evaluation: 21:43 - Subjective Subjective: Patient was seen at bedside. Nurse had asked me to enter admitting orders for this patient. She has no complaints now. Was on acute side of hospital. This 71 year old woman was admitted to acute care side for abdominal pain, distension, nausea, vomiting. Has PMH of small bowel obstruction due to adhesions,HTN,hyperthyroidism , hystrectomy. Objective - Medications Medications: Current Medications Acetaminophen (Tylenol 325mg Tab) 650 mg PO Q6H PRN PRN Reason: Pain, moderate (4-7) Enoxaparin Sodium (Lovenox) 40 mg SC DAILY [facility] PRN Reason: Protocol Home Med (Home Med) 1 unit PO DAILY [facility] Metronidazole (Flagyl) 500 mg in 100 mls @ 100 mls/hr IVPB Q8 [facility] PRN Reason: Protocol Ceftriaxone Sodium (Rocephin 1 Gram Ivpb) 1 gm in 100 mls @ 100 mls/hr IVPB DAILY [facility] PRN Reason: Protocol Metoprolol Tartrate (Lopressor) 25 mg PO 0800,1800 [facility] Oxycodone/Acetaminophen (Percocet 5/325 Mg Tab) 1 tab PO Q4H PRN PRN Reason: Pain, moderate (4-7) Stop: 12/18/16 19:45 Pantoprazole Sodium (Protonix Ec Tab) 40 mg PO 0600 [facility] - Constitutional Appears: Well, No Acute Distress - Head Exam Head Exam: ATRAUMATIC, NORMAL INSPECTION, NORMOCEPHALIC - Eye Exam Eye Exam: Normal appearance - ENT Exam ENT Exam: Normal External Ear Exam - Neck Exam Neck Exam: Normal Inspection - Respiratory Exam Respiratory Exam: NORMAL BREATHING PATTERN - Cardiovascular Exam Cardiovascular Exam: absent: JVD - GI/Abdominal Exam GI & Abdominal Exam: absent: Distended - Rectal Exam Rectal Exam: Deferred - Exam Additional comments: Deferred. - Extremities Exam Extremities Exam: Normal Inspection - Back Exam Back Exam: NORMAL INSPECTION - Neurological Exam Neurological Exam: Altered, Oriented x3 - Psychiatric Exam Psychiatric exam: Normal Affect, Normal Mood - Skin Skin Exam: Normal Color Assessment and Plan - Assessment and Plan (Free Text) Assessment: Abdominal pain. Small bowel obstruction. Sepsis. HTN. UTI. Borderline anemia. Plan: Continue same medications patient was receiving at acute care side. As per PMD.
[2016-12-15] MEDS: metroNIDAZOLE IV 500 mg/100 ml 500 MG/100 ML BAG IVPB SCH (22:06)
[2016-12-15] MEDS ORDERED: Pneumococcal 23-Valent Vaccine IM ONE (22:10)
[2016-12-16] MEDS: metroNIDAZOLE IV 500 mg/100 ml 500 MG/100 ML BAG IVPB SCH ×3 (06:03→21:40)
[2016-12-16] MEDS: Pantoprazole 40 mg EC Tab PO SCH (06:04)
[2016-12-16] MEDS: Oxycodone/Acetaminophen 5/325 mg Tab PO PRN ×3 (06:12→21:41)
--- NOTE | 2016-12-16 08:31 | CP.PCM.PN ---
<Henry Keenan - Last Filed: 12/16/16 09:03> Subjective - Date & Time of Evaluation Date of Evaluation: 12/16/16 Time of Evaluation: : - Subjective Subjective: General Surgery Dr. Sargent Patient seen and examined at bedside this morning. No acute events over night. Patient transferred to TCU yesterday. Patient states she is not currently in any pain. She is tolerating her diet well. Denies F/C, N/V, SOB or CP. Objective - Vital Signs/Intake and Output Vital Signs (last 24 hours): Temp Pulse Resp BP Pulse Ox 97.9 F 75 20 157/90 H 12/15/16 22:01 12/15/16 22:01 12/15/16 22:01 12/15/16 22:01 - Medications Medications: Current Medications Acetaminophen (Tylenol 325mg Tab) 650 mg PO Q6H PRN PRN Reason: Pain, moderate (4-7) Enoxaparin Sodium (Lovenox) 40 mg SC DAILY [facility] PRN Reason: Protocol Home Med (Home Med) 1 unit PO DAILY [facility] Metronidazole (Flagyl) 500 mg in 100 mls @ 100 mls/hr IVPB Q8 [facility] PRN Reason: Protocol Last Admin: 12/16/16 06:03 Dose: 100 mls/hr Ceftriaxone Sodium (Rocephin 1 Gram Ivpb) 1 gm in 100 mls @ 100 mls/hr IVPB DAILY [facility] PRN Reason: Protocol Metoprolol Tartrate (Lopressor) 25 mg PO 0800,1800 [facility] Oxycodone/Acetaminophen (Percocet 5/325 Mg Tab) 1 tab PO Q4H PRN PRN Reason: Pain, moderate (4-7) Stop: 12/18/16 19:45 Last Admin: 12/16/16 06:12 Dose: 1 tab Pantoprazole Sodium (Protonix Ec Tab) 40 mg PO 0600 [facility] Last Admin: 12/16/16 06:04 Dose: 40 mg Potassium Chloride (K-Dur 20 Meq Er Tab) 20 meq PO 0800 [facility] - Constitutional Appears: Non-toxic, No Acute Distress - Eye Exam Eye Exam: EOMI - ENT Exam ENT Exam: Mucous Membranes Moist - Respiratory Exam Respiratory Exam: NORMAL BREATHING PATTERN. absent: Accessory Muscle Use, Respiratory Distress - Cardiovascular Exam Cardiovascular Exam: REGULAR RHYTHM - GI/Abdominal Exam GI & Abdominal Exam: Soft. absent: Distended, Rigid Additional comments: Ostomy producing non-melenic, brown fecal material. Surgical midline incision shows no signs of infection, inflammation or drainage. Packing was removed yesterday, leave open to air. - Neurological Exam Neurological Exam: Alert, Awake, Oriented x3 - Psychiatric Exam Psychiatric exam: Normal Affect, Normal Mood - Skin Skin Exam: Dry, Normal Color, Warm Assessment and Plan - Assessment and Plan (Free Text) Assessment: 71 year old F s/p Hartmanns procedure POD5, with perforated diverticulitis with abscess Plan: Packing removed yesterday, leave open to air Monitor for ostomy output Monitor surgical incision for signs of infection - open to air Continue PO antibiotics/pain control OOB encouraged AE hose/GI ppx Will discussed with Dr. Rosetta Faithn PGY 1 <Jerry Sargent - Last Filed: 12/22/16 11:17> Objective - Vital Signs/Intake and Output Vital Signs (last 24 hours): Temp Pulse Resp BP Pulse Ox 98 F 74 15 105/69 99 12/21/16 16:02 12/21/16 17:35 12/21/16 16:02 12/21/16 17:35 12/21/16 16:02 - Labs Labs: 12/19/16 09:00 12/19/16 09:00 Assessment and Plan - Assessment and Plan (Free Text) Plan: Patient was seen, evaluated and examined by me. I agree with the assessment and plan as per the resident's note.
[2016-12-16] MEDS: Enoxaparin 40 mg Syringe SC SCH (11:25)
[2016-12-16] MEDS: cefTRIAXone 1 gm 1 GM/100 ML BAG IVPB SCH (11:28)
[2016-12-16] MEDS: Potassium Chloride 20 mEq ER Tab PO SCH (16:39)
--- NOTE | 2016-12-16 23:59 | CP.PCM.HP ---
Past Patient History - Infectious Disease Hx of Infectious Diseases: None - Past Social History Smoking Status: Never Smoked - CARDIAC Hx Hypertension: Yes - PULMONARY Hx Respiratory Disorders: No - NEUROLOGICAL Hx Neurological Disorder: No - HEENT Hx HEENT Problems: No - RENAL Hx Chronic Kidney Disease: No - ENDOCRINE/METABOLIC Hx Hypothyroidism: Yes - HEMATOLOGICAL/ONCOLOGICAL Hx Blood Transfusions: No Hx Blood Transfusion Reaction: No - INTEGUMENTARY Hx Dermatological Problems: Yes Other/Comment: POST LASER SURGERY TO BILATERAL LE AND FOOT.BILATERAL LOWER EXTREMITY IS BLACKENED.SAME WITH FOOT. - MUSCULOSKELETAL/RHEUMATOLOGICAL Hx Falls: No - GASTROINTESTINAL Hx Gastrointestinal Disorders: Yes - GENITOURINARY/GYNECOLOGICAL Hx Reproductive Disorders: No - PSYCHIATRIC Hx Substance Use: No - SURGICAL HISTORY Hx Surgeries: Yes (Small Bowel Obstruction) Hx Hysterectomy: Yes - ANESTHESIA Hx Anesthesia Reactions: No Hx Malignant Hyperthermia: No Meds Allergies/Adverse Reactions: Allergies Allergy/AdvReac Type Severity Reaction Status Date / Time No Known Allergies Allergy Verified 12/08/16 18:13 Results - Vital Signs Recent Vital Signs: Last Vital Signs Temp 98.2 F 12/16/16 16:00 Pulse 69 12/16/16 18:38 Resp 18 12/16/16 16:00 BP 148/74 12/16/16 18:38 Pulse Ox 100 12/16/16 16:00
[2016-12-17] MEDS: Oxycodone/Acetaminophen 5/325 mg Tab PO PRN ×3 (02:22→21:35)
[2016-12-17] MEDS: metroNIDAZOLE IV 500 mg/100 ml 500 MG/100 ML BAG IVPB SCH ×3 (05:21→21:28)
[2016-12-17] MEDS: Pantoprazole 40 mg EC Tab PO SCH (06:13)
[2016-12-17] MEDS: Potassium Chloride 20 mEq ER Tab PO SCH (08:58)
[2016-12-17] MEDS: cefTRIAXone 1 gm 1 GM/100 ML BAG IVPB SCH (09:01)
[2016-12-17] MEDS: BENICAR HCT PO SCH (09:02)
[2016-12-17] MEDS: Enoxaparin 40 mg Syringe SC SCH (09:03)
[2016-12-18] MEDS: Pantoprazole 40 mg EC Tab PO SCH (05:21)
[2016-12-18] MEDS: metroNIDAZOLE IV 500 mg/100 ml 500 MG/100 ML BAG IVPB SCH ×3 (05:21→21:13)
[2016-12-18] MEDS: Potassium Chloride 20 mEq ER Tab PO SCH (08:35)
[2016-12-18] MEDS: BENICAR HCT PO SCH (10:52)
[2016-12-18] MEDS: Enoxaparin 40 mg Syringe SC SCH (10:53)
[2016-12-18] MEDS: cefTRIAXone 1 gm 1 GM/100 ML BAG IVPB SCH (10:53)
[2016-12-19] MEDS: metroNIDAZOLE IV 500 mg/100 ml 500 MG/100 ML BAG IVPB SCH ×3 (05:54→21:44)
[2016-12-19] MEDS: cefTRIAXone 1 gm 1 GM/100 ML BAG IVPB SCH (05:55)
[2016-12-19] MEDS: Pantoprazole 40 mg EC Tab PO SCH (05:58)
[2016-12-19] MEDS: Potassium Chloride 20 mEq ER Tab PO SCH (08:16)
[2016-12-19 09:17] LABS: BASO # 0.02 K/mm3 (0.0-2.0); BASO % 0.3 % (0.0-3.0); EOS # 0.2 (0.0-0.7); EOS % 3.2 % (1.5-5.0); GRAN % 68.7 % (50.0-68.0); HEMOGLOBIN 10.6 gm/dL (12.0-16.0); LYMPH # 1.5 (1.2-3.4); LYMPH % 22.9 % (22.0-35.0); MEAN CELL VOLUME 90.9 fL (80.0-105.0); MEAN CORPUSCULAR HEMOGLOBIN 29.4 pg (25.0-35.0); MEAN CORPUSCULAR HGB CONC 32.3 g/dl (31.0-37.0); MEAN PLATELET VOLUME 8.8 fl (7.0-11.0); MONO # 0.3 (0.1-0.6); MONO % 4.9 % (1.0-6.0); PLATELET COUNT 448 10^3/uL (120.0-450.0); RBC 3.61 10^6/uL (3.5-6.1); WHITE BLOOD COUNT 6.6 10^3/ul (4.5-11.0)
[2016-12-19 09:27] LABS: BLOOD UREA NITROGEN 14 mg/dL (7-21); CALCIUM 9.1 mg/dL (8.4-10.5); GFR AFRICAN-AMERICAN > 60; GFR NON-AFRICAN AMERICAN > 60
[2016-12-19] MEDS: Enoxaparin 40 mg Syringe SC SCH (10:52)
[2016-12-19] MEDS: BENICAR HCT PO SCH (10:52)
[2016-12-20] MEDS: metroNIDAZOLE IV 500 mg/100 ml 500 MG/100 ML BAG IVPB SCH ×3 (05:35→21:20)
[2016-12-20] MEDS: cefTRIAXone 1 gm 1 GM/100 ML BAG IVPB SCH (05:36)
[2016-12-20] MEDS: Pantoprazole 40 mg EC Tab PO SCH (05:36)
[2016-12-20] MEDS: Potassium Chloride 20 mEq ER Tab PO SCH (08:28)
--- NOTE | 2016-12-20 10:21 | CP.PCM.PN ---
Subjective - Date & Time of Evaluation Date of Evaluation: 12/20/16 Time of Evaluation: 09:00 - Subjective Subjective: Patient was seen and examined with medical underwriter. Patient is feeling better, denies headache, dizziness, chest pain or dyspnea.She is tolerating food.She is afebrile. Objective - Vital Signs/Intake and Output Vital Signs (last 24 hours): Temp Pulse Resp BP Pulse Ox 97.7 F 63 20 111/71 98 12/19/16 06:00 12/20/16 08:29 12/19/16 06:00 12/20/16 08:29 12/19/16 06:00 Intake and Output: 12/20/16 12/20/16 06:59 18:59 Intake Total 420 Balance 420 - Medications Medications: Current Medications Acetaminophen (Tylenol 325mg Tab) 650 mg PO Q6H PRN PRN Reason: Pain, moderate (4-7) Last Admin: 12/20/16 08:41 Dose: 650 mg Enoxaparin Sodium (Lovenox) 40 mg SC DAILY [facility] PRN Reason: Protocol Last Admin: 12/19/16 10:52 Dose: 40 mg Home Med (Home Med) 1 unit PO DAILY [facility] Last Admin: 12/19/16 10:52 Dose: 1 unit Metronidazole (Flagyl) 500 mg in 100 mls @ 100 mls/hr IVPB Q8 [facility] PRN Reason: Protocol Last Admin: 12/20/16 05:35 Dose: 100 mls/hr Ceftriaxone Sodium (Rocephin 1 Gram Ivpb) 1 gm in 100 mls @ 100 mls/hr IVPB 0600 [facility] PRN Reason: Protocol Last Admin: 12/20/16 05:36 Dose: 100 mls/hr Metoprolol Tartrate (Lopressor) 25 mg PO 0800,1800 [facility] Last Admin: 12/20/16 08:29 Dose: 25 mg Pantoprazole Sodium (Protonix Ec Tab) 40 mg PO 0600 [facility] Last Admin: 12/20/16 05:36 Dose: 40 mg Potassium Chloride (K-Dur 20 Meq Er Tab) 20 meq PO 0800 [facility] Last Admin: 12/20/16 08:28 Dose: 20 meq - Labs Labs: 12/19/16 09:00 12/19/16 09:00 - Constitutional Appears: Non-toxic, No Acute Distress - Head Exam Head Exam: ATRAUMATIC, NORMAL INSPECTION - Neck Exam Neck Exam: Full ROM, Normal Inspection - Respiratory Exam Respiratory Exam: NORMAL BREATHING PATTERN - Cardiovascular Exam Cardiovascular Exam: REGULAR RHYTHM Additional comments: no rub or gallop - GI/Abdominal Exam GI & Abdominal Exam: Soft, Normal Bowel Sounds Additional comments: stomy producing non-melenic, brown fecal material. Surgical midline incision shows no signs of infection, inflammation or drainage. - Extremities Exam Additional comments: no cynosis or clubbing - Neurological Exam Neurological Exam: Alert, Awake, CN II-XII Intact Additional comments: non focal Assessment and Plan - Assessment and Plan (Free Text) Plan: 71 year old F SP Hartmanns procedure POD9, with perforated diverticulitis with abscess, improving tolerating food. 1. Perforated diverticulitis with abscess,SP Hartmanns procedure Wound culture grew K.Pneumonia Patient is afebrile, feeling better, she is tolerating food Continue IV Flagyl and Rocephin. Surgery is following. 2.Anemia Hemoglobin is stable 2.Deconditiong Continue physical therapy 3.DVT Prophylaxis with lovenox Management plan was discussed in detail with patient Education was provided ,
[2016-12-20] MEDS: BENICAR HCT PO SCH (10:48)
[2016-12-20] MEDS: Enoxaparin 40 mg Syringe SC SCH (10:49)
[2016-12-21] MEDS: metroNIDAZOLE IV 500 mg/100 ml 500 MG/100 ML BAG IVPB SCH ×2 (05:38→14:20)
[2016-12-21] MEDS: cefTRIAXone 1 gm 1 GM/100 ML BAG IVPB SCH (05:39)
[2016-12-21] MEDS: Pantoprazole 40 mg EC Tab PO SCH (05:39)
[2016-12-21] MEDS: Potassium Chloride 20 mEq ER Tab PO SCH (08:20)
[2016-12-21] MEDS: Enoxaparin 40 mg Syringe SC SCH (11:01)
[2016-12-21] MEDS: BENICAR HCT PO SCH (11:01)
--- NOTE | 2016-12-21 12:31 | CP.PCM.DIS ---
Provider - Provider Date of Admission: 12/15/16 17:51 Attending physician: Marleni Mora MD Primary care physician: NO PRIMARY CARE PROVIDER Time Spent in preparation of Discharge (in minutes): 30 Hospital Course - Lab Results Lab Results: Most Recent Lab Values WBC 6.6 10^3/ul (4.5-11.0) 12/19/16 09:00 RBC 3.61 10^6/uL (3.5-6.1) 12/19/16 09:00 Hgb 10.6 gm/dL (12.0-16.0) L 12/19/16 09:00 Hct 32.8 % (36.0-48.0) L 12/19/16 09:00 MCV 90.9 fL (80.0-105.0) 12/19/16 09:00 MCH 29.4 pg (25.0-35.0) 12/19/16 09:00 MCHC 32.3 g/dl (31.0-37.0) 12/19/16 09:00 RDW 14.0 % (11.5-14.5) 12/19/16 09:00 Plt Count 448 10^3/uL (120.0-450.0) 12/19/16 09:00 MPV 8.8 fl (7.0-11.0) 12/19/16 09:00 Gran % 68.7 % (50.0-68.0) H 12/19/16 09:00 Lymph % (Auto) 22.9 % (22.0-35.0) 12/19/16 09:00 [place] % (Auto) 4.9 % (1.0-6.0) 12/19/16 09:00 Eos % (Auto) 3.2 % (1.5-5.0) 12/19/16 09:00 Baso % (Auto) 0.3 % (0.0-3.0) 12/19/16 09:00 Gran # 4.50 (1.4-6.5) 12/19/16 09:00 Lymph # 1.5 (1.2-3.4) 12/19/16 09:00 [place] # 0.3 (0.1-0.6) 12/19/16 09:00 Eos # 0.2 (0.0-0.7) 12/19/16 09:00 Baso # 0.02 K/mm3 (0.0-2.0) 12/19/16 09:00 Sodium 136 mmol/L (132-148) 12/19/16 09:00 Potassium 3.7 mmol/L (3.6-5.0) 12/19/16 09:00 Chloride 99 mmol/L (98-107) 12/19/16 09:00 Carbon Dioxide 27 mmol/L (21-33) 12/19/16 09:00 Anion Gap 14 (10-20) 12/19/16 09:00 BUN 14 mg/dL (7-21) 12/19/16 09:00 Creatinine 0.7 mg/dL (0.5-1.4) 12/19/16 09:00 Est GFR ( Amer) > 60 12/19/16 09:00 Est GFR (Non-Af Amer) > 60 12/19/16 09:00 POC Glucose (mg/dL) 102 mg/dL (65-110) 12/18/16 05:30 Random Glucose 164 mg/dL (70-110) H 12/19/16 09:00 Calcium 9.1 mg/dL (8.4-10.5) 12/19/16 09:00 Magnesium 2.0 mg/dL (1.7-2.2) 12/19/16 09:00 - Hospital Course Hospital Course: 71F admitted to the hospital for SBO abdominal pain,distension, nausea, vomiting. Patient has a pmh of HTN, hyperthyroidism, hysterectomy. CT abdomen and pelvis showed distal small bowel obstruction with transition at right lower quadrant, 1.8 cm adrenal module and an incidental right middle lobe nodule. Dr. Sargent was consulted NGT was placed to monitor output and monitor bowel movements. 12/11 Patient was scheduled for and exploratory laparotomy, where a perforated diverticulitis was found with abscess in the abdomen. Patient then underwent a Ramona's (sigmoidectomy and colostomy placement). Patient with a perforated diverticulitis with abscess s/p Ramona's procedure with Klebsiella positive wound culture. Patient was transferred to the TCU. Patient is currently on day 3 of rocephin. - Date & Time of H&P Date of H&P: 12/21/16 Time of H&P: 12:28 Discharge Exam - Head Exam Head Exam: ATRAUMATIC, NORMAL INSPECTION, NORMOCEPHALIC - Eye Exam Eye Exam: EOMI, Normal appearance - ENT Exam ENT Exam: Mucous Membranes Moist - Neck Exam Neck exam: Full Rom, Normal Inspection - Respiratory Exam Respiratory Exam: NORMAL BREATHING PATTERN. absent: Accessory Muscle Use, Wheezes, Respiratory Distress, Stridor - Cardiovascular Exam Cardiovascular Exam: REGULAR RHYTHM - GI/Abdominal Exam GI & Abdominal Exam: Soft, Tenderness. absent: Distended, Firm, Guarding Additional comments: incision site. jon removed by surgery. drainage at umbilicus. no signs of induration, purulence, dehiscence - Extremities Exam Extremities exam: full ROM - Neurological Exam Neurological exam: Alert, Oriented x3, Reflexes Normal - Skin Skin Exam: Dry, Normal Color, Warm Discharge Plan - Discharge Medications Prescriptions: Ciprofloxacin [Cipro] 500 mg PO BID #10 tab Metronidazole [Flagyl] 500 mg PO TID #15 tablet - Follow Up Plan Condition: STABLE Disposition: DISCHARGED TO HOME CARE Additional Instructions: f/u with Dr Herrera for post op care c/w antibiotics Cipro 500mg BID (Disp #10) 5 days Flagyl 500mg TID (Disp #15) 5 days return to ED if abdominal pain, incision site shows infection, induration, drainage, purulence colostomy bag changes PRN. Patient already educated on colostomy bag changes Referrals: PCP,NO [Primary Care Provider] -
[2016-12-21 16:03] VITALS: BP 105/69; PULSE 74; RESP 15; TEMP 98; O2SAT 99
== END 2016-12-21 21:38 | disposition home or self-care (01) | DRG 389 ==
LOC: TRCU 17:51
PROVIDERS: ADMIT Internal Medicine; ATTEND Internal Medicine
PROC: F07Z9FZ Gait Training/Functional Ambulation Treatment using Assistive, Adaptive, Supportive or Protective Equipment (ICD-10-PCS; principal; 2016-12-17)
PROC: F07Z8ZZ Transfer Training Treatment (ICD-10-PCS; 2016-12-17)
PROC: F07L6ZZ Therapeutic Exercise Treatment of Musculoskeletal System - Lower Back / Lower Extremity (ICD-10-PCS; 2016-12-17)
PROC: F08Z4ZZ Home Management Treatment (ICD-10-PCS; 2016-12-18)
DX: K56.5 Intestinal adhesions [bands] with obstruction (postinfection) (principal); K57.20 Diverticulitis of large intestine with perforation and abscess without bleeding; Z43.3 Encounter for attention to colostomy; I10 Essential (primary) hypertension; N39.0 Urinary tract infection, site not specified; Z48.815 Encounter for surgical aftercare following surgery on the digestive system; E03.9 Hypothyroidism, unspecified; D64.9 Anemia, unspecified; B96.1 Klebsiella pneumoniae [K. pneumoniae] as the cause of diseases classified elsewhere

== ENCOUNTER 2017-04-12 07:30 | Inpatient (IN) | payer MEDICARE, OTHER ==
[2017-04-12 08:09] LABS: BASO # 0.02 K/mm3 (0.0-2.0); BASO % 0.4 % (0.0-3.0); EOS # 0.1 (0.0-0.7); EOS % 1.6 % (1.5-5.0); GRAN # 2.64 (1.4-6.5); GRAN % 58.9 % (50.0-68.0); HEMATOCRIT 39.5 % (36.0-48.0); LYMPH # 1.4 (1.2-3.4); LYMPH % 30.8 % (22.0-35.0); MEAN CELL VOLUME 89.8 fl (80.0-105.0); MEAN CORPUSCULAR HGB CONC 33.4 g/dl (31.0-37.0); MEAN PLATELET VOLUME 10.2 fl (7.0-11.0); MONO # 0.4 (0.1-0.6); MONO % 8.3 % (1.0-6.0); WHITE BLOOD COUNT 4.5 10^3/ul (4.5-11.0)
[2017-04-12 08:19] LABS: BLOOD UREA NITROGEN 10 mg/dL (7-21); CALCIUM 9.8 mg/dL (8.4-10.5); CARBON DIOXIDE 25 mmol/L (21-33); CHLORIDE 104 mmol/L (98-107); GFR AFRICAN-AMERICAN > 60; GLUCOSE,RANDOM 107 mg/dL (70-110); POTASSIUM 3.8 mmol/L (3.6-5.0); SODIUM 140 mmol/L (132-148)
[2017-04-12 08:24] LABS: INR 1.1 (0.93-1.08); PARTIAL THROMBOPLASTIN TIME 33.1 Seconds (25.1-36.5)
[2017-04-12 08:36] LABS: FREE T4 1.07 ng/dL (0.78-2.19)
[2017-04-12 08:50] LABS: THYROID STIMULATING HORMONE 3.1 mIU/mL (0.46-4.68)
[2017-04-12] MEDS ORDERED: Bupivacaine 0.5% Inj(30mL) ONE (09:17)
[2017-04-12] MEDS ORDERED: Propofol 10 mg/ml Inj (20 ML) ONE (09:32)
[2017-04-12] MEDS ORDERED: Rocuronium 10 mg/ml (5 ml) ONE ×2 (09:32→10:34)
[2017-04-12] MEDS ORDERED: Succinylcholine 200 mg/10 ml Inj IV ONE (09:32)
[2017-04-12] MEDS ORDERED: metroNIDAZOLE IV 500 mg/100 ml 500 MG/100 ML BAG ONE (09:51)
[2017-04-12] MEDS ORDERED: Neostigmine Methylsulfate 3mg/3ml Syringe IV ONE (10:31)
--- NOTE | 2017-04-12 13:58 | PCM.SURG1 ---
Surgeon's Initial Post Op Note - Surgeon's Notes Surgeon: Dr. Sargent Cutter Hot Knife: Dr. Lutz PGY2, Dr. Hills PGY3 Type of Anesthesia: General Endo Pre-Operative Diagnosis: Colostomy, S/P Sigmoidectomy, Diverticulosis Operative Findings: See Operative Report Post-Operative Diagnosis: Colostomy, S/P Sigmoidectomy, Diverticulosis Operation Performed: Rigid Sigmoidoscopy, Segmental Colon Resection, Colostomy Reversal, Exlap with lysis of adhesions. Specimen/Specimens Removed: Colon Estimated Blood Loss: EBL {In ML}: 10 Blood Products Given: N/A Drains Used: Meir Date of Surgery/Procedure: 04/12/17 Time of Surgery/Procedure: 09:58
[2017-04-12] MEDS ORDERED: Lactated Ringer's 1,000 ML IV SCH (14:00)
[2017-04-12] MEDS: HYDROmorphone 0.5 mg/0.5 ml ISec IVP PRN ×3 (14:00→14:53)
[2017-04-12] MEDS ORDERED: cefOXitin Sodium 1 GM in Sodium Chloride 0.9% 100 ML IV SCH (14:15)
[2017-04-12] MEDS ORDERED: HYDROmorphone 0.5 mg/0.5 ml ISec ONE ×2 (14:26→14:52)
[2017-04-12] MEDS: HYDROmorphone 1 mg/ml ISec IVP PRN (16:38)
[2017-04-12] MEDS: metroNIDAZOLE IV 500 mg/100 ml 500 MG/100 ML BAG IVPB SCH ×2 (16:41→21:53)
[2017-04-12] MEDS: cefOXitin Sodium 1 GM in Sodium Chloride 0.9% 100 ML IV SCH (18:09)
[2017-04-12 22:05] VITALS: BMI 27.4
[2017-04-12] MEDS ORDERED: Pneumococcal 23-Valent Vaccine IM ONE (22:06)
[2017-04-12] MEDS ORDERED: Influenza Vaccine 60 mcg/0.5 mL SYR (4YR UP) IM ONE (22:06)
[2017-04-13] MEDS: HYDROmorphone 1 mg/ml ISec IVP PRN ×3 (01:16→11:16)
[2017-04-13] MEDS: cefOXitin Sodium 1 GM in Sodium Chloride 0.9% 100 ML IV SCH (02:33)
[2017-04-13] MEDS: metroNIDAZOLE IV 500 mg/100 ml 500 MG/100 ML BAG IVPB SCH ×3 (05:22→22:14)
[2017-04-13 07:19] LABS: BASO # 0.02 K/mm3 (0.0-2.0); BASO % 0.3 % (0.0-3.0); EOS % 0.4 % (1.5-5.0); GRAN # 4.81 (1.4-6.5); GRAN % 71.5 % (50.0-68.0); HEMATOCRIT 33.8 % (36.0-48.0); LYMPH # 1.3 (1.2-3.4); LYMPH % 19.2 % (22.0-35.0); MEAN CELL VOLUME 89.4 fl (80.0-105.0); MEAN CORPUSCULAR HEMOGLOBIN 29.4 pg (25.0-35.0); MEAN CORPUSCULAR HGB CONC 32.8 g/dl (31.0-37.0); MEAN PLATELET VOLUME 10.1 fl (7.0-11.0); MONO # 0.6 (0.1-0.6); MONO % 8.6 % (1.0-6.0); WHITE BLOOD COUNT 6.7 10^3/ul (4.5-11.0)
[2017-04-13 07:39] LABS: BLOOD UREA NITROGEN 10 mg/dL (7-21); CALCIUM 8.3 mg/dL (8.4-10.5); CARBON DIOXIDE 29 mmol/L (21-33); CHLORIDE 102 mmol/L (98-107); GFR AFRICAN-AMERICAN > 60; GLUCOSE,RANDOM 104 mg/dL (70-110); POTASSIUM 3.7 mmol/L (3.6-5.0); SODIUM 138 mmol/L (132-148)
[2017-04-13] MEDS ORDERED: Potassium Chloride 10 MEQ in Dextrose 5%/0.45% NS 1,000 ML IV SCH (07:45)
--- NOTE | 2017-04-13 08:01 | RAD ---
HISTORY: eval ngt placement COMPARISON: Chest radiographs 12/08/2016. FINDINGS: A nasogastric tube in place terminating at the left upper quadrant abdomen with the side hole at the region of the esophagogastric junction. Advancing the catheter further into the stomach is recommended 10-15 cm following confirmation radiograph. LUNGS: No active pulmonary disease. PLEURA: No significant pleural effusion identified, no pneumothorax apparent. CARDIOVASCULAR: Normal. OSSEOUS STRUCTURES: No significant abnormalities. VISUALIZED UPPER ABDOMEN: Normal. OTHER FINDINGS: None. IMPRESSION: Nasogastric tube terminates in the stomach however the side hole is at the esophagogastric junction appeared mass of the catheter further into the stomach is recommended as discussed above with follow-up confirmation radiograph. No acute infiltrate or pleural effusion bilaterally.
--- NOTE | 2017-04-13 08:07 | CP.PCM.PN ---
<Anay Hills - Last Filed: 04/13/17 07:58> Subjective - Date & Time of Evaluation Date of Evaluation: 04/13/17 Time of Evaluation: 07:00 - Subjective Subjective: Surgery: Dr. Sargent Pt seen and examined. POD#1 from colostomy reversal with low anterior side to side anastomosis. States pain is well controlled at this time. Denies N/V, F/C overnight. Objective - Vital Signs/Intake and Output Vital Signs (last 24 hours): Temp Pulse Resp BP Pulse Ox 97.5 F L 60 20 137/77 95 04/12/17 21:42 04/12/17 21:42 04/12/17 21:42 04/12/17 21:42 04/12/17 18:20 Intake and Output: 04/13/17 04/13/17 06:59 18:59 Intake Total 1800 Output Total 820 Balance 980 - Medications Medications: Current Medications Enoxaparin Sodium (Lovenox) 40 mg SC DAILY [facility] PRN Reason: Protocol Hydrochlorothiazide (Microzide) 12.5 mg PO DAILY [facility] Hydromorphone HCl (Dilaudid) 1 mg IVP Q4H PRN PRN Reason: Pain, moderate (4-7) Last Admin: 04/13/17 05:59 Dose: 1 mg Metronidazole (Flagyl) 500 mg in 100 mls @ 100 mls/hr IVPB Q8 [facility] PRN Reason: Protocol Last Admin: 04/13/17 05:22 Dose: 100 mls/hr Potassium Chloride 10 meq/ (Dextrose/Sodium Chloride) 1,005 mls @ 75 mls/hr IV .[id number] [facility] Levothyroxine Sodium (Synthroid) 100 mcg PO DAILY [facility] Losartan Potassium (Cozaar) 100 mg PO DAILY [facility] - Labs Labs: 04/13/17 06:45 04/13/17 06:45 PT 12.1 SECONDS (9.4-12.5) 04/12/17 08:00 INR 1.10 (0.93-1.08) H 04/12/17 08:00 APTT 33.1 Seconds (25.1-36.5) 04/12/17 08:00 - Constitutional Appears: Well, No Acute Distress - Head Exam Head Exam: ATRAUMATIC, NORMOCEPHALIC - Eye Exam Eye Exam: Normal appearance - ENT Exam ENT Exam: Mucous Membranes Moist - Respiratory Exam Respiratory Exam: NORMAL BREATHING PATTERN - Cardiovascular Exam Cardiovascular Exam: REGULAR RHYTHM, RRR - GI/Abdominal Exam GI & Abdominal Exam: Soft, Tenderness (around incisions, dressing C/D/I. Meir drain with 20cc of serosang output). absent: Distended - Neurological Exam Neurological Exam: Alert, Awake, Oriented x3 - Skin Skin Exam: Dry, Warm Assessment and Plan - Assessment and Plan (Free Text) Assessment: 71F s/p ex-lap with colostomy reversal and low anterior anastomosis; POD#1 Plan: - DC saunders and NGT - monitor meir output - monitor bowel function - get out of bed to chair - PT eval - encourage IS use - d/w Dr. Sargent <Jerry Sargent - Last Filed: 04/16/17 10:10> Objective - Vital Signs/Intake and Output Vital Signs (last 24 hours): Temp Pulse Resp BP Pulse Ox 98.5 F 75 18 131/81 97 04/15/17 07:30 04/15/17 07:30 04/15/17 07:30 04/15/17 07:30 04/15/17 07:30 - Labs Labs: 04/15/17 08:42 04/15/17 08:42 PT 12.1 SECONDS (9.4-12.5) 04/12/17 08:00 INR 1.10 (0.93-1.08) H 04/12/17 08:00 APTT 33.1 Seconds (25.1-36.5) 04/12/17 08:00 Assessment and Plan - Assessment and Plan (Free Text) Plan: Patient was seen and examined by me. I agree with assessment and plan as per resident's note.
[2017-04-13] MEDS: Enoxaparin 40 mg Syringe SC SCH (11:16)
[2017-04-13] MEDS: Levothyroxine 100 MCG TAB PO SCH (11:17)
[2017-04-13] MEDS ORDERED: Lactated Ringer's 1,000 ML IV SCH (15:30)
[2017-04-13] MEDS ORDERED: Oxycodone/Acetaminophen 5/325 mg Tab PO PRN (16:08)
[2017-04-13] MEDS ORDERED: HYDROmorphone 1 mg/ml ISec IVP PRN (16:08)
[2017-04-13] MEDS: Oxycodone/Acetaminophen 5/325 mg Tab PO PRN (18:38)
[2017-04-14] MEDS: Oxycodone/Acetaminophen 5/325 mg Tab PO PRN ×3 (00:36→17:18)
--- NOTE | 2017-04-14 05:36 | OP ---
PROCEDURE DATE: 04/12/2017 PREOPERATIVE DIAGNOSES: Diverticulosis and colostomy. POSTOPERATIVE DIAGNOSES: Diverticulosis and colostomy. PROCEDURES PERFORMED: 1. Partial colectomy with low-anterior anastomosis and colostomy closure. 2. Rigid proctosigmoidoscopy. 3. Splenic flexure mobilization. 4. Lysis of dense pelvic and abdominal adhesions. SURGEON: Dr. Sargent. ROOF MECHANIC: Dr. Hills. ANESTHESIA ADMINISTERED BY: Dr. Taylor. TYPE OF ANESTHESIA: General endotracheal anesthesia. SPECIMEN: Portion of the sigmoid colon with large diverticula. ESTIMATED BLOOD LOSS: Minimal. INDICATIONS: The patient is a 71-year-old female with history of previous perforated diverticulitis and abscess, who underwent Ramona's procedure. The patient now was brought in for colostomy reversal. DESCRIPTION OF PROCEDURE: The patient was brought to the operating room and placed on operating table in supine position. The patient was connected to EKG, blood pressure, and pulse oximetry monitor. The patient then underwent general endotracheal anesthesia and was prepped and draped in the usual sterile fashion in a lithotomy position. First, a standard time-out procedure took place and everybody in the room agreed as to the patient's identity, diagnosis, and procedure to be performed. An operative plan as well as postoperative course was outlined and everybody agreed with the plan. The colostomy opening was sutured with pursestring stitch prior to the preparation of the patient. Ioban plastic drape was used on top of the sterile dressings. Now, using #15 blade, an elliptical incision was made surrounding the colostomy opening and careful dissection was done. down to the fascia where the bowel wall was released from the attachments to the fascia. Once this was done and colon was mobilized, it appeared that there were multiple large diverticula proximal to the end of the colostomy, and therefore, decision was made to proceed with resection of this portion of the bowel. The mesentery of that portion was mobilized and about 12-inches segment was carefully dissected out and removed using TI stapler. Once this was done and specimen was sent out, the remaining portion of the descending colon was placed back into the abdominal cavity. Now, our attention was turned to the midline where the incision was made through the previous incision down to the fascia and opening to the abdominal cavity was obtained. Once inside of the abdominal cavity, we noted that there were multiple dense intraabdominal adhesions of both omentum and small bowel to both each other, the colon and entire pelvis. After tedious dissection of about an 1 hour and 15 minutes, we were able to finally mobilize the small bowel from the pelvis and exposed the rectal stump. Once this was completed and the bowel was pushed up towards the right upper quadrant, we now proceeded with mobilization of the splenic flexure, which was done along the paracolic gutter on the left side all the way up to the splenic flexure. The splenic flexure was mobilized and the bowel was moved down to the pelvis. The mesentery of this ascending colon was transected in order to gain adequate length in order to bring it down to the pelvis. Now, in order to be able to create a [id number] anastomosis, the rectal stump was mobilized into retrorectal space and moved out of the pelvis and brought up. This was all done with careful dissection noting the position of the ureter in order to avoid any injury. Now, when we had both ends mobilized, I was able to check the position both ends of the descending colon and rectal stump to each other and create a cfav-da-huer anastomosis using TI and TA staplers. Once this was completed, the extra stitches were placed on top of the staple line in order to improve its strength. Once this was completed, the bowel appeared to be lying without any tension. The pelvic area was copiously irrigated and all the irrigant fluid was suctioned out. The Meir drain was placed into the pelvis and positioned near the anastomotic site. The drain was sutured to the skin using stitch. The midline incision was now carefully closed using #1 PDS stitches for the fascia, 3-0 Vicryl for subcutaneous tissue, and surgical jon for skin. This wound was now covered and the colostomy wound was now elevated and copiously irrigated. All the irrigant fluid was suctioned out. The fascia was closed using #1 PDS in a running fashion. The subcutaneous tissues were closed using 3-0 Vicryl and skin was closed using surgical jon. Once these were all completed, the sterile dressing was applied to the wound. In addition, prior to starting the procedure while the patient was already in the lithotomy position, a rigid proctosigmoidoscopy was done in order to empty the vault of the rectum where there were multiple hard pieces of stool lodged from prior to this operation. This was done with irrigation of the bowel and lavaging of the rectum in order to be able to visualize all the way up to the transection of the rectum at its top. Once this was completed and the rectal canal was cleared, we then proceeded with the surgery. Now, the patient was carefully awakened, extubated, and transferred to the recovery room for further observation. Jerry Sargent MD [email or web address]
[2017-04-14] MEDS: metroNIDAZOLE IV 500 mg/100 ml 500 MG/100 ML BAG IVPB SCH ×3 (06:11→22:33)
[2017-04-14 06:24] LABS: HEMATOCRIT 33.1 % (36.0-48.0); MEAN CELL VOLUME 89.5 fl (80.0-105.0); MEAN CORPUSCULAR HEMOGLOBIN 29.7 pg (25.0-35.0); MEAN CORPUSCULAR HGB CONC 33.2 g/dl (31.0-37.0); MEAN PLATELET VOLUME 10.1 fl (7.0-11.0); RED CELL DISTRIBUTION WIDTH 13.1 % (11.5-14.5); WHITE BLOOD COUNT 6.6 10^3/ul (4.5-11.0)
[2017-04-14 07:05] LABS: BLOOD UREA NITROGEN 5 mg/dL (7-21); CALCIUM 8.5 mg/dL (8.4-10.5); CARBON DIOXIDE 30 mmol/L (21-33); CHLORIDE 101 mmol/L (98-107); GFR AFRICAN-AMERICAN > 60; GLUCOSE,RANDOM 129 mg/dL (70-110); SODIUM 137 mmol/L (132-148)
[2017-04-14] MEDS: Enoxaparin 40 mg Syringe SC SCH (09:17)
[2017-04-14] MEDS: Levothyroxine 100 MCG TAB PO SCH (09:18)
[2017-04-14] MEDS: Potassium Chloride 20 mEq ER Tab PO SCH ×2 (09:18→17:18)
--- NOTE | 2017-04-14 10:28 | CP.PCM.PN ---
<Montserrat Sims - Last Filed: 04/14/17 10:25> Subjective - Date & Time of Evaluation Date of Evaluation: 04/14/17 Time of Evaluation: 10:25 - Subjective Subjective: General Surgery - Dr. Gar Pt S&ERashawn LUNSFORD. Pt is sitting up oob in the chair this morning. She complains of mild abdominal pain from surgical sites but otherwise states she is doing well. She is tolerating full liquid diet and ambulating with assistance. No N/ V, F/C, SOB/Cp. Objective - Vital Signs/Intake and Output Vital Signs (last 24 hours): Temp Pulse Resp BP Pulse Ox 97.8 F 70 20 131/78 98 04/14/17 07:30 04/14/17 07:30 04/14/17 07:30 04/14/17 07:30 04/14/17 07:30 Intake and Output: 04/14/17 04/14/17 06:59 18:59 Intake Total 540 Output Total 45 Balance 495 - Medications Medications: Current Medications Enoxaparin Sodium (Lovenox) 40 mg SC DAILY NELL PRN Reason: Protocol Last Admin: 04/14/17 09:17 Dose: 40 mg Hydrochlorothiazide (Microzide) 12.5 mg PO DAILY [facility] Last Admin: 04/14/17 09:18 Dose: 12.5 mg Hydromorphone HCl (Dilaudid) 1 mg IVP Q6H PRN PRN Reason: Pain, severe (8-10) Metronidazole (Flagyl) 500 mg in 100 mls @ 100 mls/hr IVPB Q8 NELL PRN Reason: Protocol Last Admin: 04/14/17 06:11 Dose: 100 mls/hr Potassium Chloride (Potassium Chloride 20 Meq/100 Ml) 20 meq in 100 mls @ 50 mls/hr IVPB Q2H NELL Stop: 04/14/17 11:44 Last Admin: 04/14/17 08:51 Dose: 50 mls/hr Levothyroxine Sodium (Synthroid) 100 mcg PO DAILY NELL Last Admin: 04/14/17 09:18 Dose: 100 mcg Losartan Potassium (Cozaar) 100 mg PO DAILY [facility] Last Admin: 04/14/17 09:19 Dose: 100 mg Oxycodone/Acetaminophen (Percocet 5/325 Mg Tab) 1 tab PO Q4H PRN PRN Reason: Pain, moderate (4-7) Stop: 04/16/17 16:09 Last Admin: 04/14/17 09:19 Dose: 1 tab Potassium Chloride (K-Dur 20 Meq Er Tab) 20 meq PO BID NELL Stop: 04/15/17 10:01 Last Admin: 04/14/17 09:18 Dose: 20 meq - Labs Labs: 04/14/17 06:05 04/14/17 06:05 PT 12.1 SECONDS (9.4-12.5) 04/12/17 08:00 INR 1.10 (0.93-1.08) H 04/12/17 08:00 APTT 33.1 Seconds (25.1-36.5) 04/12/17 08:00 - Constitutional Appears: No Acute Distress - Head Exam Head Exam: ATRAUMATIC, NORMAL INSPECTION, NORMOCEPHALIC - Eye Exam Eye Exam: Normal appearance - Respiratory Exam Respiratory Exam: NORMAL BREATHING PATTERN. absent: Respiratory Distress - GI/Abdominal Exam GI & Abdominal Exam: Soft. absent: Distended, Guarding, Tenderness, Rebound Additional comments: midline incision C/D/I, dressing removed and swabbed with betadyne, Drain inplace w/ serosanguinous dranage 95cc/24hrs - Neurological Exam Neurological Exam: Alert, Oriented x3 - Psychiatric Exam Psychiatric exam: Normal Affect, Normal Mood - Skin Skin Exam: Dry, Intact, Warm Assessment and Plan - Assessment and Plan (Free Text) Assessment: 71F s/p colostomy reversal w/ low anterior anastomosis; POD#2 Plan: - Continue Full liquid diet - Monitor for bowel function - DC IVF - Monitor Is/Os - Encourage OOB to chair, Ambulation, Incentive Spirometer - DVT/GI Px DW Dr. Rosetta Sims PGY3 <Jerry Sargent - Last Filed: 04/16/17 10:11> Objective - Vital Signs/Intake and Output Vital Signs (last 24 hours): Temp Pulse Resp BP Pulse Ox 98.5 F 75 18 131/81 97 04/15/17 07:30 04/15/17 07:30 04/15/17 07:30 04/15/17 07:30 04/15/17 07:30 - Labs Labs: 04/15/17 08:42 04/15/17 08:42 PT 12.1 SECONDS (9.4-12.5) 04/12/17 08:00 INR 1.10 (0.93-1.08) H 04/12/17 08:00 APTT 33.1 Seconds (25.1-36.5) 04/12/17 08:00 Assessment and Plan - Assessment and Plan (Free Text) Assessment: Patient was seen and examined by me. I agree with assessment and plan as per resident's note.
[2017-04-14 13:12] LABS: MAGNESIUM 1.7 mg/dL (1.7-2.2); PHOSPHOROUS 2.4 mg/dL (2.5-4.5); POTASSIUM 3.6 mmol/L (3.6-5.0)
[2017-04-14] MEDS: Potassium & Sodium Phosphate PO SCH ×2 (14:19→17:09)
[2017-04-15] MEDS: Oxycodone/Acetaminophen 5/325 mg Tab PO PRN (03:41)
[2017-04-15] MEDS: metroNIDAZOLE IV 500 mg/100 ml 500 MG/100 ML BAG IVPB SCH ×2 (06:08→13:14)
[2017-04-15 08:29] VITALS: BP 131/81; PULSE 75; RESP 18; TEMP 98.5; O2SAT 97
[2017-04-15 09:14] LABS: BASO # 0.01 K/mm3 (0.0-2.0); BASO % 0.2 % (0.0-3.0); EOS # 0.3 (0.0-0.7); EOS % 4.2 % (1.5-5.0); GRAN # 4.23 (1.4-6.5); GRAN % 68.1 % (50.0-68.0); HEMATOCRIT 34.5 % (36.0-48.0); LYMPH # 1.5 (1.2-3.4); LYMPH % 23.5 % (22.0-35.0); MEAN CELL VOLUME 90.1 fl (80.0-105.0); MEAN CORPUSCULAR HEMOGLOBIN 29.2 pg (25.0-35.0); MEAN CORPUSCULAR HGB CONC 32.5 g/dl (31.0-37.0); MEAN PLATELET VOLUME 10.3 fl (7.0-11.0); MONO # 0.3 (0.1-0.6); RED CELL DISTRIBUTION WIDTH 13.1 % (11.5-14.5); WHITE BLOOD COUNT 6.2 10^3/ul (4.5-11.0)
[2017-04-15 09:25] LABS: ALKALINE PHOSPHATASE 59 U/L (38-126); ALT/SGPT 24 U/L (7-56); AST/SGOT 18 U/L (14-36); BILIRUBIN,TOTAL 0.9 mg/dL (0.2-1.3); BLOOD UREA NITROGEN 6 mg/dL (7-21); CALCIUM 9.1 mg/dL (8.4-10.5); CARBON DIOXIDE 28 mmol/L (21-33); CHLORIDE 97 mmol/L (98-107); GFR AFRICAN-AMERICAN > 60; GLUCOSE,RANDOM 136 mg/dL (70-110); POTASSIUM 3.1 mmol/L (3.6-5.0); SODIUM 137 mmol/L (132-148); TOTAL PROTEIN 6.8 g/dL (5.8-8.3)
[2017-04-15] MEDS ORDERED: Potassium Chloride 20 mEq ER Tab PO ONE (09:43)
[2017-04-15] MEDS: Potassium & Sodium Phosphate PO SCH ×2 (09:44→13:14)
[2017-04-15] MEDS: Potassium Chloride 20 mEq ER Tab PO SCH (09:44)
[2017-04-15] MEDS: Enoxaparin 40 mg Syringe SC SCH (09:45)
[2017-04-15] MEDS: Levothyroxine 100 MCG TAB PO SCH (09:45)
[2017-04-15] MEDS ORDERED: Influenza Vaccine 60 mcg/0.5 mL SYR (4YR UP) IM ONE (13:50)
[2017-04-15] MEDS ORDERED: Pneumococcal 23-Valent Vaccine IM ONE (13:50)
--- NOTE | 2017-04-15 14:45 | CP.PCM.DIS ---
<Los Truong - Last Filed: 04/15/17 18:34> Provider - Provider Date of Admission: 04/12/17 07:35 Attending physician: Jerry Sargent MD Primary care physician: Marleni Patel MD Time Spent in preparation of Discharge (in minutes): 45 Hospital Course - Lab Results Lab Results: Most Recent Lab Values WBC 6.2 10^3/ul (4.5-11.0) 04/15/17 08:42 RBC 3.83 10^6/uL (3.5-6.1) 04/15/17 08:42 Hgb 11.2 g/dL (12.0-16.0) L 04/15/17 08:42 Hct 34.5 % (36.0-48.0) L 04/15/17 08:42 MCV 90.1 fl (80.0-105.0) 04/15/17 08:42 MCH 29.2 pg (25.0-35.0) 04/15/17 08:42 MCHC 32.5 g/dl (31.0-37.0) 04/15/17 08:42 RDW 13.1 % (11.5-14.5) 04/15/17 08:42 Plt Count 218 10^3/uL (120.0-450.0) 04/15/17 08:42 MPV 10.3 fl (7.0-11.0) 04/15/17 08:42 Gran % 68.1 % (50.0-68.0) H 04/15/17 08:42 Lymph % (Auto) 23.5 % (22.0-35.0) 04/15/17 08:42 [place] % (Auto) 4.0 % (1.0-6.0) 04/15/17 08:42 Eos % (Auto) 4.2 % (1.5-5.0) 04/15/17 08:42 Baso % (Auto) 0.2 % (0.0-3.0) 04/15/17 08:42 Gran # 4.23 (1.4-6.5) 04/15/17 08:42 Lymph # 1.5 (1.2-3.4) 04/15/17 08:42 [place] # 0.3 (0.1-0.6) 04/15/17 08:42 Eos # 0.3 (0.0-0.7) 04/15/17 08:42 Baso # 0.01 K/mm3 (0.0-2.0) 04/15/17 08:42 PT 12.1 SECONDS (9.4-12.5) 04/12/17 08:00 INR 1.10 (0.93-1.08) H 04/12/17 08:00 APTT 33.1 Seconds (25.1-36.5) 04/12/17 08:00 Sodium 137 mmol/L (132-148) 04/15/17 08:42 Potassium 3.1 mmol/L (3.6-5.0) L 04/15/17 08:42 Chloride 97 mmol/L (98-107) L 04/15/17 08:42 Carbon Dioxide 28 mmol/L (21-33) 04/15/17 08:42 Anion Gap 15 (10-20) 04/15/17 08:42 BUN 6 mg/dL (7-21) L 04/15/17 08:42 Creatinine 0.6 mg/dl (0.7-1.2) L 04/15/17 08:42 Est GFR ( Amer) > 60 04/15/17 08:42 Est GFR (Non-Af Amer) > 60 04/15/17 08:42 Random Glucose 136 mg/dL (70-110) H 04/15/17 08:42 Calcium 9.1 mg/dL (8.4-10.5) 04/15/17 08:42 Phosphorus 2.4 mg/dL (2.5-4.5) L 04/14/17 12:30 Magnesium 1.7 mg/dL (1.7-2.2) 04/14/17 12:30 Total Bilirubin 0.9 mg/dL (0.2-1.3) 04/15/17 08:42 AST 18 U/L (14-36) 04/15/17 08:42 ALT 24 U/L (7-56) 04/15/17 08:42 Alkaline Phosphatase 59 U/L (38-126) 04/15/17 08:42 Total Protein 6.8 g/dL (5.8-8.3) 04/15/17 08:42 Albumin 3.4 g/dL (3.0-4.8) 04/15/17 08:42 Globulin 3.4 gm/dL 04/15/17 08:42 Albumin/Globulin Ratio 1.0 (1.1-1.8) L 04/15/17 08:42 Free T4 1.07 ng/dL (0.78-2.19) 04/12/17 08:00 TSH 3rd Generation 3.10 mIU/mL (0.46-4.68) 04/12/17 08:00 Blood Type O POSITIVE 04/12/17 08:00 Antibody Screen Negative 04/12/17 08:00 BBK History Checked Patient has bt 04/12/17 08:00 - Hospital Course Hospital Course: 71yo F with hx of Colostomy, s/p sigmoidectomy, diverticulosis reported to the hospital for elective reversal of colostomy. Patient had a successful rigid sigmoidoscopy, segmental colon resection, colostomy reversal and extensive lysis of adhesions. There were no immediate complications. Patient's post- operative course was uncomplicated as well. She progressed well, and regained bowel function. By POD3, she was able to ambulate, pain was well tolerated, and diet was advanced to regular and well tolerated. She was given education on wound care. STACIE drain was removed and she was cleared for discharge. Ultram 50mg q6h as needed #12 was prescribed. She is to follow up with her PMD and Dr. Sargent. She understands and agrees with the plan. Discharge Exam - Head Exam Head Exam: ATRAUMATIC, NORMAL INSPECTION, NORMOCEPHALIC - Eye Exam Eye Exam: EOMI, Normal appearance - ENT Exam ENT Exam: Mucous Membranes Moist, Normal Exam - Respiratory Exam Respiratory Exam: UNREMARKABLE. absent: Accessory Muscle Use, Chest Wall Tenderness, Respiratory Distress - Cardiovascular Exam Cardiovascular Exam: RRR, +S1, +S2. absent: JVD - GI/Abdominal Exam GI & Abdominal Exam: Soft, Unremarkable. absent: Distended, Guarding, Rebound, Rigid Additional comments: midline incision intact with jon, skin edges well approximated. Left lower abdomen incision intact with jon, skin edges well approximated. Mild chalino- incisional pain. STACIE drain was removed. Abd soft, non-distended - Extremities Exam Extremities exam: normal inspection - Neurological Exam Neurological exam: Alert, Oriented x3 - Psychiatric Exam Psychiatric exam: Normal Affect, Normal Mood - Skin Skin Exam: Dry, Intact, Normal Color, Warm Discharge Plan - Discharge Medications Prescriptions: traMADol [Ultram] 50 mg PO TID PRN #12 tab PRN Reason: Pain, Moderate (4-7) - Follow Up Plan Condition: GOOD Disposition: HOME/ ROUTINE Instructions: Pneumococcal Vaccine for Adults (GEN), Soft Diet (DC), Influenza Vaccine (GEN), Acute Wound Care (DC), Laparoscopic Colostomy Reversal (DC) Additional Instructions: Patient is cleared for discharge. 1. Follow up with your Primary care physician within one week. 2. Follow up with Dr. Sargent, call for appointment 3. Take Pain meds as prescribed as needed, sparingly 4. Use betadine swabs to pain around inscision daily 5. Ok to shower. 6. Return to the ER with any concerning symptoms Referrals: Marleni Patel MD [Primary Care Provider] - Jerry Sargent MD [Staff Provider] - <Jerry Sargent - Last Filed: 04/16/17 10:12> Provider - Provider Date of Admission: 04/12/17 07:35 Attending physician: Jerry Sargent MD Primary care physician: Marleni Patel MD Hospital Course - Lab Results Lab Results: Most Recent Lab Values WBC 6.2 10^3/ul (4.5-11.0) 04/15/17 08:42 RBC 3.83 10^6/uL (3.5-6.1) 04/15/17 08:42 Hgb 11.2 g/dL (12.0-16.0) L 04/15/17 08:42 Hct 34.5 % (36.0-48.0) L 04/15/17 08:42 MCV 90.1 fl (80.0-105.0) 04/15/17 08:42 MCH 29.2 pg (25.0-35.0) 04/15/17 08:42 MCHC 32.5 g/dl (31.0-37.0) 04/15/17 08:42 RDW 13.1 % (11.5-14.5) 04/15/17 08:42 Plt Count 218 10^3/uL (120.0-450.0) 04/15/17 08:42 MPV 10.3 fl (7.0-11.0) 04/15/17 08:42 Gran % 68.1 % (50.0-68.0) H 04/15/17 08:42 Lymph % (Auto) 23.5 % (22.0-35.0) 04/15/17 08:42 [place] % (Auto) 4.0 % (1.0-6.0) 04/15/17 08:42 Eos % (Auto) 4.2 % (1.5-5.0) 04/15/17 08:42 Baso % (Auto) 0.2 % (0.0-3.0) 04/15/17 08:42 Gran # 4.23 (1.4-6.5) 04/15/17 08:42 Lymph # 1.5 (1.2-3.4) 04/15/17 08:42 [place] # 0.3 (0.1-0.6) 04/15/17 08:42 Eos # 0.3 (0.0-0.7) 04/15/17 08:42 Baso # 0.01 K/mm3 (0.0-2.0) 04/15/17 08:42 PT 12.1 SECONDS (9.4-12.5) 04/12/17 08:00 INR 1.10 (0.93-1.08) H 04/12/17 08:00 APTT 33.1 Seconds (25.1-36.5) 04/12/17 08:00 Sodium 137 mmol/L (132-148) 04/15/17 08:42 Potassium 3.1 mmol/L (3.6-5.0) L 04/15/17 08:42 Chloride 97 mmol/L (98-107) L 04/15/17 08:42 Carbon Dioxide 28 mmol/L (21-33) 04/15/17 08:42 Anion Gap 15 (10-20) 04/15/17 08:42 BUN 6 mg/dL (7-21) L 04/15/17 08:42 Creatinine 0.6 mg/dl (0.7-1.2) L 04/15/17 08:42 Est GFR ( Amer) > 60 04/15/17 08:42 Est GFR (Non-Af Amer) > 60 04/15/17 08:42 Random Glucose 136 mg/dL (70-110) H 04/15/17 08:42 Calcium 9.1 mg/dL (8.4-10.5) 04/15/17 08:42 Phosphorus 2.4 mg/dL (2.5-4.5) L 04/14/17 12:30 Magnesium 1.7 mg/dL (1.7-2.2) 04/14/17 12:30 Total Bilirubin 0.9 mg/dL (0.2-1.3) 04/15/17 08:42 AST 18 U/L (14-36) 04/15/17 08:42 ALT 24 U/L (7-56) 04/15/17 08:42 Alkaline Phosphatase 59 U/L (38-126) 04/15/17 08:42 Total Protein 6.8 g/dL (5.8-8.3) 04/15/17 08:42 Albumin 3.4 g/dL (3.0-4.8) 04/15/17 08:42 Globulin 3.4 gm/dL 04/15/17 08:42 Albumin/Globulin Ratio 1.0 (1.1-1.8) L 04/15/17 08:42 Free T4 1.07 ng/dL (0.78-2.19) 04/12/17 08:00 TSH 3rd Generation 3.10 mIU/mL (0.46-4.68) 04/12/17 08:00 Blood Type O POSITIVE 04/12/17 08:00 Antibody Screen Negative 04/12/17 08:00 BBK History Checked Patient has bt 04/12/17 08:00
== END 2017-04-15 17:50 | disposition home or self-care (01) | DRG 331 ==
LOC: SDAINP 07:35 → EDSTATUS 09:30 → 5RNO 15:43
PROVIDERS: ADMIT General Practice; ATTEND General Practice
PROC: 0DBN0ZZ Excision of Sigmoid Colon, Open Approach (ICD-10-PCS; principal; 2017-04-13)
PROC: 0DJD8ZZ Inspection of Lower Intestinal Tract, Via Natural or Artificial Opening Endoscopic (ICD-10-PCS; 2017-04-13)
DX: Z43.3 Encounter for attention to colostomy (principal); K57.30 Diverticulosis of large intestine without perforation or abscess without bleeding; K57.90 Diverticulosis of intestine, part unspecified, without perforation or abscess without bleeding; K66.0 Peritoneal adhesions (postprocedural) (postinfection)